=== PATIENT | female | born 1940 | race Caucasian/White ===

== ENCOUNTER 2018-07-12 16:22 | Inpatient (IN) | payer MEDICARE, MEDICAID ==
[2018-07-12 16:41] VITALS: BMI 33.1
[2018-07-12] MEDS ORDERED: Ondansetron ODT 4 MG TAB PO PRN (16:51)
[2018-07-12] MEDS ORDERED: Acetaminophen 325 MG TAB PO PRN (16:57)
[2018-07-12] MEDS: Ferrous Sulfate 325 MG TAB PO SCH (20:57)
[2018-07-12] MEDS: Pravastatin Sodium 20 MG TAB PO SCH (20:57)
[2018-07-12] MEDS: Sulfameth/Trimethoprim DS 800-160mg TAB PO SCH (20:57)
[2018-07-12] MEDS ORDERED: Prevnar 13-Val Conj/PF 0.5 ML SYRINGE IM ONE (21:00)
[2018-07-13 05:24] LABS: #Basophils 0.1 thou/uL (0.0-0.2); #Eosinphils 0.1 thou/uL (0.0-0.7); #Lymphocytes 1.5 thou/uL (1.20-3.40); #Monocytes 0.6 thou/uL (0.11-0.59); #Neutrophils 4.7 thou/uL (1.40-6.50); %Basophils 0.7 % (0.0-1.0); %Eosinophils 1.2 % (0.0-10.0); %Lymphocytes 22.2 % (21.0-51.0); %Neutrophils 67.9 % (42.0-75.0); Hemoglobin 9.6 g/dL (12.0-16.0); Mean Corpuscular HGB CONC 31.3 g/dL (32.0-36.0); Mean Corpuscular Volume 92.7 fL (78.0-98.0); Mean Platelet Volume 5.9 fL (7.4-10.4); Platelet Count 276 thou/uL (130-400); RBC Distribution Width 13.4 % (11.5-14.5); Red Blood Cell (RBC) Count 3.31 mill/uL (4.20-5.40); White Blood Cell (WBC) Count 6.9 thou/uL (4.8-10.8)
[2018-07-13 05:42] LABS: ALT (SGPT) 12 U/L (8-55); AST (SGOT) 13 U/L (5-34); Alkaline Phosphatase 76 U/L (40-150); Anion Gap 12 mmol/L (10-20); BUN (Urea Nitrogen) 6 mg/dL (9.8-20.1); Bilirubin, Total 0.4 mg/dL (0.2-1.2); Calc. Creatinine Clearance 135 mL/min (70-130); Calcium 8.4 mg/dL (7.8-10.44); Carbon Dioxide 26 mmol/L (23-31); Chloride 109 mmol/L (98-107); Estimated GFR-MDRD Greater than 90; Glucose 97 mg/dL (83-110); Potassium 3.8 mmol/L (3.5-5.1); Sodium 143 mmol/L (136-145)
--- NOTE | 2018-07-13 07:29 | PRG ---
DATE OF SERVICE: 07/13/2018 SUBJECTIVE: The patient feels well, sleeping, but awakens easily, answers questions in monosyllables, but appropriately, and denies shortness of breath, chest pain. She states she is hungry and has no chills or sweats. OBJECTIVE: VITAL SIGNS: Blood pressure is not available yet this morning. LUNGS: Clear. CARDIAC EXAMINATION: Regular rhythm. ABDOMEN: Obese and nontender. SKIN/EXTREMITIES: No edema. NEUROLOGICAL: Right hemiplegia. ASSESSMENT: 1. Resolving sepsis secondary to infected right ureterolithiasis with stent in place, on oral Bactrim until lithotripsy can be done by Dr. Fraga. 2. 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 3. Severe deconditioning. 4. Hypomagnesia and hypokalemia, persistent. PLAN: 1. Magnesium oxide 400 twice daily. 2. K-Dur 20 mEq daily. 3. Basic metabolic profile and magnesium level in 2 days. 4. Continue oral Bactrim DS twice daily. 5. Consult PT/OT when available. 6. Discuss lithotripsy with Dr. Fraga, when the patient is ready for discharge. Job ID: [id number]
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
[2018-07-13] MEDS: Enoxaparin Sodium 40 MG/0.4 ML SYRINGE SC SCH (08:24)
[2018-07-13] MEDS: Polyethylene Glycol 3350 17 GM Packet PO SCH (08:24)
[2018-07-13] MEDS: Sulfameth/Trimethoprim DS 800-160mg TAB PO SCH ×2 (08:24→20:19)
[2018-07-13] MEDS: Fluconazole 100 MG TAB PO SCH (08:25)
[2018-07-13] MEDS: Potassium Chloride 20 MEQ TAB PO SCH (08:25)
[2018-07-13] MEDS: Magnesium Oxide 400 MG TAB PO SCH ×2 (08:25→20:20)
[2018-07-13 16:50] LABS: Bilirubin Negative (Negative); Blood, Urine Trace (Negative); Clarity Clear (Clear); Glucose, Urine (Dipstick) Negative (Negative); Leukocyte Negative (Negative); Nitrite Negative (Negative); Protein, Urine (Dipstick) Negative (Neg-Trace); Specific Gravity, Urine 1.015 (1.005-1.030); Urobilinogen 0.2 mg/dL (0.2-1.0)
[2018-07-13 18:39] LABS: RBC/HPF 0-3 HPF (0-3); Squamous Epithelial 0-3 HPF (0-3); WBC/HPF 0-3 HPF (0-3)
[2018-07-13] MEDS: Ferrous Sulfate 325 MG TAB PO SCH (20:19)
[2018-07-13] MEDS: Pravastatin Sodium 20 MG TAB PO SCH (20:20)
[2018-07-14] MEDS: Fluconazole 100 MG TAB PO SCH (08:18)
[2018-07-14] MEDS: Enoxaparin Sodium 40 MG/0.4 ML SYRINGE SC SCH (08:18)
[2018-07-14] MEDS: Polyethylene Glycol 3350 17 GM Packet PO SCH (08:18)
[2018-07-14] MEDS: Potassium Chloride 20 MEQ TAB PO SCH (08:20)
[2018-07-14] MEDS: Sulfameth/Trimethoprim DS 800-160mg TAB PO SCH ×2 (08:20→21:05)
[2018-07-14] MEDS: Magnesium Oxide 400 MG TAB PO SCH ×2 (08:21→21:05)
--- NOTE | 2018-07-14 20:56 | PRG ---
DATE OF SERVICE: 07/14/2018 SUBJECTIVE: The patient feels well, lying in the bed, awake and alert, in no distress. Does agree to working with therapy tomorrow, but has not been out of the bed. OBJECTIVE: VITAL SIGNS: Temperature is 97.9, pulse 81, respirations 20, O2 sats 92% on room air, and blood pressure is 122/58. LUNGS: Clear. CARDIAC: Showed regular rhythm. ABDOMEN: Soft and nontender. SKIN/EXTREMITIES: Display no edema, clubbing, or cyanosis. NEUROLOGIC: Dense right hemiplegia. ASSESSMENT: 1. Traumatic brain injury with right hemiplegia. 2. Recurrent urinary tract infections, status post stent and antibiotics for infected right ureterolithiasis. 3. Severe deconditioning. 4. Hypokalemia, hypomagnesemia, on supplementation with labs to be done tomorrow. PLAN: 1. Discussed with PT and family about therapy possibility. 2. Check magnesium, basic metabolic profile in the a.m. 3. Continue Bactrim DS twice daily. 4. Discussed with Dr. Fraga lithotripsy when discharge is planned. Job ID: [id number]
[2018-07-14] MEDS: Ferrous Sulfate 325 MG TAB PO SCH (21:05)
[2018-07-14] MEDS: Pravastatin Sodium 20 MG TAB PO SCH (21:05)
[2018-07-15 05:44] LABS: Anion Gap 14 mmol/L (10-20); BUN (Urea Nitrogen) 8 mg/dL (9.8-20.1); Calc. Creatinine Clearance 107 mL/min (70-130); Calcium 8.8 mg/dL (7.8-10.44); Carbon Dioxide 21 mmol/L (23-31); Chloride 106 mmol/L (98-107); Estimated GFR-MDRD 86; Glucose 99 mg/dL (83-110); Magnesium 2.1 mg/dL (1.6-2.6); Potassium 4.2 mmol/L (3.5-5.1); Sodium 137 mmol/L (136-145)
[2018-07-15] MEDS: Magnesium Oxide 400 MG TAB PO SCH ×2 (08:52→20:57)
[2018-07-15] MEDS: Potassium Chloride 20 MEQ TAB PO SCH (08:52)
[2018-07-15] MEDS: Polyethylene Glycol 3350 17 GM Packet PO SCH (08:54)
[2018-07-15] MEDS: Fluconazole 100 MG TAB PO SCH (08:54)
[2018-07-15] MEDS: Sulfameth/Trimethoprim DS 800-160mg TAB PO SCH ×2 (08:54→20:57)
[2018-07-15] MEDS: Enoxaparin Sodium 40 MG/0.4 ML SYRINGE SC SCH (08:56)
[2018-07-15] MEDS: Pravastatin Sodium 20 MG TAB PO SCH (20:57)
[2018-07-15] MEDS: Ferrous Sulfate 325 MG TAB PO SCH (20:57)
[2018-07-16] MEDS: Sulfameth/Trimethoprim DS 800-160mg TAB PO SCH ×2 (08:32→19:53)
[2018-07-16] MEDS: Fluconazole 100 MG TAB PO SCH (08:32)
[2018-07-16] MEDS: Enoxaparin Sodium 40 MG/0.4 ML SYRINGE SC SCH (08:32)
[2018-07-16] MEDS: Magnesium Oxide 400 MG TAB PO SCH ×2 (08:33→19:54)
[2018-07-16] MEDS: Potassium Chloride 20 MEQ TAB PO SCH (08:33)
[2018-07-16] MEDS: Polyethylene Glycol 3350 17 GM Packet PO SCH (08:34)
[2018-07-16] MEDS: Ferrous Sulfate 325 MG TAB PO SCH (19:54)
[2018-07-16] MEDS: Pravastatin Sodium 20 MG TAB PO SCH (19:54)
[2018-07-17] MEDS: Polyethylene Glycol 3350 17 GM Packet PO SCH (08:25)
[2018-07-17] MEDS: Fluconazole 100 MG TAB PO SCH (08:25)
[2018-07-17] MEDS: Enoxaparin Sodium 40 MG/0.4 ML SYRINGE SC SCH (08:25)
[2018-07-17] MEDS: Sulfameth/Trimethoprim DS 800-160mg TAB PO SCH ×2 (08:26→19:40)
[2018-07-17] MEDS: Potassium Chloride 20 MEQ TAB PO SCH (08:26)
[2018-07-17] MEDS: Magnesium Oxide 400 MG TAB PO SCH ×2 (08:26→19:41)
[2018-07-17] MEDS: Ferrous Sulfate 325 MG TAB PO SCH (19:40)
[2018-07-17] MEDS: Pravastatin Sodium 20 MG TAB PO SCH (19:41)
[2018-07-18 07:17] VITALS: BP 128/62; TEMP 98.1
[2018-07-18] MEDS: Potassium Chloride 20 MEQ TAB PO SCH (08:12)
[2018-07-18] MEDS: Polyethylene Glycol 3350 17 GM Packet PO SCH (08:12)
[2018-07-18] MEDS: Magnesium Oxide 400 MG TAB PO SCH (08:12)
[2018-07-18] MEDS: Fluconazole 100 MG TAB PO SCH (08:12)
[2018-07-18] MEDS: Enoxaparin Sodium 40 MG/0.4 ML SYRINGE SC SCH (08:12)
[2018-07-18] MEDS: Sulfameth/Trimethoprim DS 800-160mg TAB PO SCH (08:12)
[2018-07-18] MEDS ORDERED: Triple Antibiotic Oint 1 GM Packet TOP SCH (09:00)
[2018-07-18] MEDS ORDERED: Doxycycline 100 MG CAP PO SCH (09:00)
[2018-07-18] MEDS ORDERED: Magnesium Citrate 300 ML BOT PO SCH (11:00)
== END 2018-07-18 12:33 | disposition home health service (06) | DRG 871 ==
LOC: NAV ACUTE 16:22
PROVIDERS: ADMIT Internal Medicine; ATTEND Internal Medicine
DX: A41.9 Sepsis, unspecified organism (principal); R65.21 Severe sepsis with septic shock; G81.91 Hemiplegia, unspecified affecting right dominant side; N39.0 Urinary tract infection, site not specified; R53.81 Other malaise; E83.42 Hypomagnesemia; E87.6 Hypokalemia; I10 Essential (primary) hypertension; E78.5 Hyperlipidemia, unspecified; J44.9 Chronic obstructive pulmonary disease, unspecified; K21.9 Gastro-esophageal reflux disease without esophagitis; I25.2 Old myocardial infarction; Z90.710 Acquired absence of both cervix and uterus; Z87.820 Personal history of traumatic brain injury; Z93.0 Tracheostomy status
CPT/HCPCS: 80048; 80053; 81001; 83735; 85025; 87070; 87205; J1650

== ENCOUNTER 2019-01-29 14:11 | Outpatient (CLI) | payer MEDICARE, OTHER ==
[2019-01-30 12:04] LABS: Bilirubin Small (Negative); Blood, Urine Small (Negative); Glucose, Urine (Dipstick) Negative (Negative); Leukocyte Large (Negative); Nitrite Negative (Negative); Protein, Urine (Dipstick) > or equal to 300 mg/dL (Neg-Trace)
[2019-01-30 12:10] LABS: Clarity Turbid (Clear)
[2019-01-30 12:11] LABS: Bacteria/HPF 4+ HPF (None Seen); RBC/HPF 0-3 HPF (0-3); Squamous Epithelial 0-3 HPF (0-3); Triple Phosphate Crystal 1+ HPF (None Seen); WBC/HPF 0-3 HPF (0-3)
== END 2019-01-29 14:12 | disposition home or self-care (01) ==
LOC: NAV LABSP 14:11
PROVIDERS: ATTEND Urology
DX: Z87.440 Personal history of urinary (tract) infections (principal)
CPT/HCPCS: 81001; 87077; 87086; 87186

== ENCOUNTER 2020-02-23 17:44 | Inpatient (IN) | payer MEDICARE, MEDICAID ==
[2020-02-23 18:03] VITALS: BMI 33.3
[2020-02-23] MEDS: Lactinex Tablet PO SCH (21:01)
[2020-02-23] MEDS: Cholecalciferol 1,000 UNITS (25 MCG) TAB PO SCH (21:01)
[2020-02-23] MEDS: Ferrous Sulfate 325 MG TAB PO SCH (21:02)
[2020-02-23] MEDS: Sulfameth/Trimethoprim DS 800-160mg TAB PO SCH (21:02)
[2020-02-23] MEDS: Pantoprazole 40 MG GRANULES PACKET PO SCH (21:02)
[2020-02-23] MEDS: Simvastatin 10 MG TAB PO SCH (21:02)
[2020-02-23] MEDS: Meropenem 1 GM in Sodium Chloride 0.9% 100 ML IVPB SCH (23:53)
[2020-02-24] MEDS ORDERED: Meropenem 1 GM VIAL IVPB SCH
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
[2020-02-24 05:43] LABS: #Basophils 0.1 thou/uL (0.0-0.2); #Eosinphils 0.2 thou/uL (0.0-0.7); #Lymphocytes 1.7 thou/uL (1.20-3.40); #Monocytes 0.8 thou/uL (0.11-0.59); #Neutrophils 3.8 thou/uL (1.40-6.50); %Basophils 1.2 % (0.0-1.0); %Eosinophils 3.1 % (0.0-10.0); %Lymphocytes 26.2 % (21.0-51.0); %Monocytes 11.7 % (0.0-10.0); %Neutrophils 57.9 % (42.0-75.0); Mean Corpuscular HGB CONC 32.3 g/dL (32.0-36.0); Mean Corpuscular Hemoglobin 29.7 pg (27.0-31.0); Mean Corpuscular Volume 92.1 fL (78.0-98.0); Mean Platelet Volume 6.4 fL (7.4-10.4); Platelet Count 220 thou/uL (130-400); RBC Distribution Width 14.1 % (11.5-14.5); Red Blood Cell (RBC) Count 4.05 mill/uL (4.20-5.40); White Blood Cell (WBC) Count 6.6 thou/uL (4.8-10.8)
[2020-02-24 05:59] LABS: ALT (SGPT) 12 U/L (8-55); AST (SGOT) 16 U/L (5-34); Albumin 2.8 g/dL (3.4-4.8); Alkaline Phosphatase 81 U/L (40-110); Anion Gap 10 mmol/L (10-20); BUN (Urea Nitrogen) 8 mg/dL (9.8-20.1); Bilirubin, Total 0.4 mg/dL (0.2-1.2); Calc. Creatinine Clearance 101 mL/min (70-130); Calcium 8.1 mg/dL (7.8-10.44); Carbon Dioxide 27 mmol/L (23-31); Chloride 107 mmol/L (98-107); Globulin 3.3 g/dL (2.4-3.5); Glucose 90 mg/dL (83-110); Potassium 4.1 mmol/L (3.5-5.1); Protein, Total 6.1 g/dL (6.0-8.3); Sodium 140 mmol/L (136-145)
[2020-02-24] MEDS ORDERED: Meropenem 1 GM VIAL ONE (08:52)
[2020-02-24] MEDS: Meropenem 1 GM in Sodium Chloride 0.9% 100 ML IVPB SCH ×3 (08:54→23:05)
[2020-02-24] MEDS ORDERED: FLU VACC QS2020-21(65YR UP)/PF 240 MCG/0.7 ML SYRINGE IM ONE (09:00)
[2020-02-24] MEDS: Enoxaparin Sodium 40 MG/0.4 ML SYRINGE SC SCH (09:00)
[2020-02-24] MEDS: Sulfameth/Trimethoprim DS 800-160mg TAB PO SCH ×2 (09:00→21:17)
[2020-02-24] MEDS: Cholecalciferol 1,000 UNITS (25 MCG) TAB PO SCH (21:16)
[2020-02-24] MEDS: Simvastatin 10 MG TAB PO SCH (21:17)
[2020-02-24] MEDS: Ferrous Sulfate 325 MG TAB PO SCH (21:17)
[2020-02-24] MEDS: Lactinex Tablet PO SCH (21:17)
[2020-02-24] MEDS: Pantoprazole 40 MG GRANULES PACKET PO SCH (21:17)
--- NOTE | 2020-02-25 06:40 | PRG ---
DATE OF SERVICE: 02/24/2020 SUBJECTIVE: The patient is an unfortunate, 79-year-old white female, status post traumatic brain injury years ago with right hemiparesis, who is bedridden, who also has recurrent bilateral nephrolithiasis with recurrent urinary tract infections and sepsis and has had an episode of E coli bacteremia and bilateral hydronephrosis requiring ureteral stents, being placed by Dr. Fraga. She has defervesced on IV meropenem and is to finish her IV meropenem on February 25 and is doing well in the skilled unit at this time. The patient is alert, but confused and in no distress. She is eating well with no complaints of pain or nausea. OBJECTIVE: VITAL SIGNS: Temperature 97.2, pulse 70, respirations 18, O2 saturations 95% on room air, blood pressure is 114/53. LUNGS: Clear. CARDIAC: Shows regular rhythm. ABDOMEN: Soft and nontender. There are no decubitus. LABORATORY DATA: White count 6600, hematocrit 37, hemoglobin 12. Sodium 140, potassium 4.1, chloride 107, bicarb 27, BUN 8, creatinine 0.69, albumin 2.8. ASSESSMENT: Resolving E coli bacteremia secondary to bilateral nephrolithiasis, who is status post bilateral ureteral stents and is finishing her course of IV meropenem. PLAN: 1. Continue IV meropenem until final date of February 25. 2. Discuss follow up with Dr. Fraga after discharge. 3. Continue also oral Bactrim until March 02. Job ID: [id number]
[2020-02-25] MEDS: Sulfameth/Trimethoprim DS 800-160mg TAB PO SCH ×2 (08:56→20:15)
[2020-02-25] MEDS: Enoxaparin Sodium 40 MG/0.4 ML SYRINGE SC SCH (08:56)
[2020-02-25] MEDS: Meropenem 1 GM in Sodium Chloride 0.9% 100 ML IVPB SCH ×3 (08:57→23:17)
[2020-02-25] MEDS: Cholecalciferol 1,000 UNITS (25 MCG) TAB PO SCH (20:14)
[2020-02-25] MEDS: Ferrous Sulfate 325 MG TAB PO SCH (20:15)
[2020-02-25] MEDS: Lactinex Tablet PO SCH (20:15)
[2020-02-25] MEDS: Simvastatin 10 MG TAB PO SCH (20:15)
[2020-02-25] MEDS: Pantoprazole 40 MG GRANULES PACKET PO SCH (20:15)
--- NOTE | 2020-02-26 06:05 | PRG ---
DATE OF SERVICE: 02/25/2020 SUBJECTIVE: Patient is awake and alert, confused, but at baseline mental status, cheerful, and in no distress. Daughter is in the room and discussed that her antibiotics will be finished tomorrow or tonight and that she can be discharged home tomorrow and she is agreeable. OBJECTIVE: VITAL SIGNS: Temperature is 97.5, pulse 74, respirations 18, O2 sats 94% on room air, blood pressure is 122/65. LUNGS: Clear. CARDIAC: Regular rhythm. ABDOMEN: Soft and nontender. ASSESSMENT: 1. Resolving Escherichia coli bacteremia, to finish IV meropenem 10-day course tonight. 2. Recurrent nephrolithiasis with bilateral stents in place. To follow up with Dr. Fraga as an outpatient. 3. Stable traumatic brain injury with confusion and right hemiplegia. PLAN: Finish antibiotics today. Discharge tomorrow. Follow up with Dr. Fraga at his discretion. Job ID: [id number]
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
[2020-02-26] MEDS: Enoxaparin Sodium 40 MG/0.4 ML SYRINGE SC SCH (09:06)
[2020-02-26] MEDS: Sulfameth/Trimethoprim DS 800-160mg TAB PO SCH (09:06)
[2020-02-26] MEDS: Meropenem 1 GM in Sodium Chloride 0.9% 100 ML IVPB SCH ×2 (09:09→15:43)
[2020-02-26 09:24] VITALS: BP 130/64; TEMP 97.2
[2020-02-26 17:17] LABS: Bilirubin Negative (Negative); Blood, Urine Moderate (Negative); Glucose, Urine (Dipstick) Negative (Negative); Ketone, Urine Negative (Negative); Leukocyte Large (Negative); Nitrite Negative (Negative); Protein, Urine (Dipstick) Trace mg/dL (Neg-Trace); Urobilinogen 0.2 mg/dL (Less than 2); pH, Urine 7.5 (5.0-9.0)
[2020-02-26 17:38] LABS: Clarity Hazy (Clear)
[2020-02-26 17:51] LABS: Bacteria/HPF Rare-Few HPF (None Seen); RBC/HPF 0-3 HPF (0-3); Transitional Epithelial 0-3 HPF (None Seen); WBC/HPF 21-50 HPF (0-3)
[2020-02-26 17:52] LABS: Urine Culture Reflex No No
--- NOTE | 2020-03-03 05:24 | PQF ---
CLINICAL DOCUMENTATION CLARIFICATION FORM: Dear : David Simon Date / Time: 03/03/2020 Please exercise your independent, professional judgment in responding to the clarification form. Clinical indicators are provided on the bottom of this form for your review Please check appropriate box(es): [ x ] Sepsis due to nephrolithiasis [ ] Sepsis due to other (please specify if any [ ] Bacteremia [ ] Other diagnosis [ ] Unable to determine In addition, please specify: Present on Admission (POA): [ x ] Yes [ ] No [ ] Unable to determine To be completed by CDI/Coding staff for physician review: Present Clinical Indicators - Signs / Symptoms / Labs Results and Location in Medical Record [ x ] Chief complaint: E.coli bacteremia secondary to bilateral obstructed ureter with nephrolithiasis and hydronephrosis H and P [ x ] Found in the ED to have obstructed kidney and hydronephrosis and quickly became septic with tachycardia and fever and hypotension requiring pressor with Levophed. H and P [ x ] Resolving E.coli bacteremia secondary to bilateral nephrolithiasis, status post bilateral ureteral stents and finishing her course of IV meropenem Progress 02/23 by David Moseley [ x ] Patient with main problem of recurrent UTI and urosepsis secondary to recurrent nephrolithiasis Discharge summary Present Risk Factors Results and Location in Medical Record [ x ] Recurrent urinary tract infection, nephrolithiasis and ureterolithiasis, status post stents, E.coli bacteremia Discharge summary Present Treatments Results and Location in Medical Record [ x ] IV Meropenem 1130-02/26 Medications [ x ] Daily CBCs Laboratory [ x ] IV fluids Medications CDS/Doctor Of Pharmacy Signature: [id number] Phone #: Date/Time: 03/03/2020 This is a permanent part of the Medical Record [facility]
== END 2020-02-26 19:10 | disposition home health service (06) | DRG 872 ==
LOC: NAV ACUTE 17:44
PROVIDERS: ADMIT Internal Medicine; ATTEND Internal Medicine
DX: A41.9 Sepsis, unspecified organism (principal); N13.6 Pyonephrosis; G81.91 Hemiplegia, unspecified affecting right dominant side; I10 Essential (primary) hypertension; E78.5 Hyperlipidemia, unspecified; K59.09 Other constipation; J44.9 Chronic obstructive pulmonary disease, unspecified; I25.2 Old myocardial infarction; Z90.710 Acquired absence of both cervix and uterus; Z87.820 Personal history of traumatic brain injury; Z74.01 Bed confinement status
CPT/HCPCS: 80053; 81001; 85025; 87086; 90471; 90662; 90732; G0008; G0009; J1650; J2185; J3490

== ENCOUNTER 2020-03-26 17:30 | Inpatient (IN) | payer MEDICARE, MEDICAID ==
[2020-03-26] MEDS ORDERED: Acetaminophen 325 MG TAB PO PRN (18:09)
[2020-03-26] MEDS ORDERED: Lactinex Tablet PO SCH (21:00)
[2020-03-26] MEDS ORDERED: Pantoprazole 40 MG GRANULES PACKET PO SCH (21:00)
[2020-03-26] MEDS ORDERED: Metoprolol Tartrate 25 MG TAB PO SCH (21:00)
[2020-03-26] MEDS ORDERED: Ferrous Sulfate 325 MG TAB PO SCH (21:00)
[2020-03-26] MEDS ORDERED: Cholecalciferol 1,000 UNITS (25 MCG) TAB PO SCH (21:00)
[2020-03-26] MEDS: Simvastatin 10 MG TAB PO SCH (21:37)
[2020-03-26] MEDS: Meropenem 1 GM in Sodium Chloride 0.9% 100 ML IVPB SCH (21:39)
[2020-03-27] MEDS: Meropenem 1 GM in Sodium Chloride 0.9% 100 ML IVPB SCH ×3 (06:22→21:17)
[2020-03-27] MEDS ORDERED: Acetaminophen 325 MG TAB PO PRN (07:21)
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
[2020-03-27 08:32] LABS: Band 2 % (5-11); Hemoglobin 10.7 g/dL (12.0-16.0); Lymphocytes 16 % (21-51); MDiff Complete? YES; Mean Corpuscular HGB CONC 33.2 g/dL (32.0-36.0); Mean Corpuscular Hemoglobin 30.4 pg (27.0-31.0); Mean Corpuscular Volume 91.4 fL (78.0-98.0); Monocytes 6 % (0-10); Neutrophil 75 % (42-75); Ovalocytes SLIGHT = 2-5 cells (100X) (0-1/hpf); Platelet Count 180 thou/uL (130-400); Platelet Morphology Comment Appears Adequate; RBC Distribution Width 15.1 % (11.5-14.5); Reactive Lymphocytes 1 % (0-10); Red Blood Cell (RBC) Count 3.53 mill/uL (4.20-5.40); Tear Drops SLIGHT = 2-5 cells (100X) (0-1/hpf); White Blood Cell (WBC) Count 7.7 thou/uL (4.8-10.8)
[2020-03-27] MEDS: Enoxaparin Sodium 40 MG/0.4 ML SYRINGE SC SCH (08:36)
[2020-03-27] MEDS: Metoprolol Tartrate 25 MG TAB PO SCH ×2 (08:37→21:13)
[2020-03-27 08:41] LABS: ALT (SGPT) 9 U/L (8-55); AST (SGOT) 10 U/L (5-34); Albumin 2.6 g/dL (3.4-4.8); Alkaline Phosphatase 93 U/L (40-110); Anion Gap 9 mmol/L (10-20); BUN (Urea Nitrogen) 10 mg/dL (9.8-20.1); Bilirubin, Total 0.3 mg/dL (0.2-1.2); Calc. Creatinine Clearance 127 mL/min (70-130); Calcium 7.9 mg/dL (7.8-10.44); Carbon Dioxide 31 mmol/L (23-31); Chloride 105 mmol/L (98-107); Globulin 3.5 g/dL (2.4-3.5); Glucose 102 mg/dL (83-110); Potassium 3.2 mmol/L (3.5-5.1); Protein, Total 6.1 g/dL (6.0-8.3); Sodium 142 mmol/L (136-145)
[2020-03-27] MEDS ORDERED: Enoxaparin Sodium 40 MG/0.4 ML SYRINGE SC SCH (09:00)
[2020-03-27] MEDS ORDERED: MEROPENEM 1 GM/50 ML IVPB SCH (14:00)
[2020-03-27] MEDS ORDERED: Sodium Chloride 0.9% 10 ML ONE (15:38)
[2020-03-27] MEDS ORDERED: Pravastatin Sodium 20 MG TAB PO SCH (21:00)
[2020-03-27] MEDS ORDERED: Sodium Chloride 0.9% 20 ML ONE (21:06)
[2020-03-27] MEDS: Lactinex Tablet PO SCH (21:11)
[2020-03-27] MEDS: Cholecalciferol 1,000 UNITS (25 MCG) TAB PO SCH (21:12)
[2020-03-27] MEDS: Simvastatin 10 MG TAB PO SCH (21:13)
[2020-03-27] MEDS: Ferrous Sulfate 325 MG TAB PO SCH (21:14)
[2020-03-27] MEDS ORDERED: Pantoprazole 40 MG GRANULES PACKET ONE (21:20)
[2020-03-27] MEDS: Pantoprazole 40 MG GRANULES PACKET PO SCH (21:23)
[2020-03-28] MEDS ORDERED: Sodium Chloride 0.9% 20 ML ONE (05:52)
[2020-03-28] MEDS: Meropenem 1 GM in Sodium Chloride 0.9% 100 ML IVPB SCH ×3 (06:02→22:16)
[2020-03-28] MEDS: Metoprolol Tartrate 25 MG TAB PO SCH ×2 (08:26→21:37)
[2020-03-28] MEDS: Enoxaparin Sodium 40 MG/0.4 ML SYRINGE SC SCH (08:26)
[2020-03-28] MEDS ORDERED: Sodium Chloride 0.9% 40 ML ONE (20:50)
[2020-03-28] MEDS: Lactinex Tablet PO SCH (21:28)
[2020-03-28] MEDS: Cholecalciferol 1,000 UNITS (25 MCG) TAB PO SCH (21:29)
[2020-03-28] MEDS: Pantoprazole 40 MG GRANULES PACKET PO SCH (21:29)
[2020-03-28] MEDS: Simvastatin 10 MG TAB PO SCH (21:29)
[2020-03-28] MEDS: Ferrous Sulfate 325 MG TAB PO SCH (21:31)
[2020-03-29] MEDS ORDERED: Sodium Chloride 0.9% 20 ML ONE (06:23)
[2020-03-29] MEDS: Meropenem 1 GM in Sodium Chloride 0.9% 100 ML IVPB SCH ×3 (06:43→21:53)
--- NOTE | 2020-03-29 06:49 | PRG ---
DATE OF SERVICE: 03/27/2020 SUBJECTIVE: The patient lying in bed, resting well. No complaints. Has been eating well, sleeping well with no respiratory distress. OBJECTIVE: VITAL SIGNS: Show temperature is 98.3, pulse 67, respirations 20, O2 saturations 95% on room air, blood pressure is 124/60. LUNGS: Clear. CARDIAC: Shows regular rhythm. ABDOMEN: Obese, but nontender. SKIN/EXTREMITIES: Show trace edema, clubbing. No decubitus. NEUROLOGIC: Shows right hemiplegia. LABORATORY DATA: White count of 7700, hematocrit 32, hemoglobin 10. Sodium 140, potassium low at 3.2, chloride 105, bicarb 31, BUN 10, creatinine 0.53, glucose 102, calcium 7.9, total bilirubin 0.3, AST 10, ALT 9, albumin down to 2.6. ASSESSMENT: 1. infected renal calculi, status post lithotripsy, stenting, with subsequent Proteus bacteremia, septic shock, now resolving on IV meropenem for a full 10-day course until April 08. 2. Stable traumatic brain injury, right hemiplegia, expressive aphasia, and cognitive deficits. 3. Chronic obstructive pulmonary disease history, asymptomatic. 4. Hypertension, controlled to goal. 5. Chronic constipation, doing well. PLAN: 1. Continue IV meropenem for 10 days. 2. Continue stress ulcer and DVT prophylaxis. 3. Continue metoprolol 12.5 twice daily for recent tachycardia. Monitor for bradycardia and hypotension and bronchospasms. 4. Anxiety and depression. Continue sertraline. Job ID: [id number]
--- NOTE | 2020-03-29 08:08 | PRG ---
DATE OF SERVICE: 03/28/2020 SUBJECTIVE: The patient is lying in bed, feels well, eating her supper. No cough, shortness of breath, nausea, or vomiting. Nurses have reported no concerns. The patient is tolerating her IV meropenem very well. OBJECTIVE: VITAL SIGNS: Showed temperature 98.4, pulse 70, respirations 18, O2 sats 96% on room air, blood pressure is 116/60. LUNGS: Clear. CARDIAC EXAMINATION: Regular rhythm. ABDOMEN: Soft and nontender. ASSESSMENT: 1. Resolving resistant Proteus bacteremia and septic shock, on IV meropenem on full 10-day course until March. 2. 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 3. Chronic obstructive pulmonary disease, historically asymptomatic. 4. Hypertension, controlled to goal. PLAN: 1. Continue IV meropenem for a full 10-day course, finish on April 08. 2. Continue stress ulcer and DVT prophylaxis. 3. Monitor vital signs closely, particularly pulse, and continue metoprolol 12.5 twice daily for a recent episode of supraventricular tachycardia. 4. Continue sertraline. Job ID: [id number]
[2020-03-29] MEDS: Enoxaparin Sodium 40 MG/0.4 ML SYRINGE SC SCH (08:36)
[2020-03-29] MEDS: Metoprolol Tartrate 25 MG TAB PO SCH ×2 (08:36→21:52)
[2020-03-29] MEDS: Potassium Chloride 20 MEQ TAB PO SCH (08:36)
[2020-03-29] MEDS: Lactinex Tablet PO SCH (21:52)
[2020-03-29] MEDS: Simvastatin 10 MG TAB PO SCH (21:53)
[2020-03-29] MEDS: Cholecalciferol 1,000 UNITS (25 MCG) TAB PO SCH (21:53)
[2020-03-29] MEDS: Pantoprazole 40 MG GRANULES PACKET PO SCH (21:53)
[2020-03-29] MEDS: Ferrous Sulfate 325 MG TAB PO SCH (21:53)
[2020-03-30] MEDS: Meropenem 1 GM in Sodium Chloride 0.9% 100 ML IVPB SCH ×3 (06:51→21:35)
[2020-03-30] MEDS: Potassium Chloride 20 MEQ TAB PO SCH (10:13)
[2020-03-30] MEDS: Metoprolol Tartrate 25 MG TAB PO SCH ×2 (10:14→21:36)
[2020-03-30] MEDS: Enoxaparin Sodium 40 MG/0.4 ML SYRINGE SC SCH (10:16)
[2020-03-30] MEDS ORDERED: Sodium Chloride 0.9% 20 ML ONE (15:14)
--- NOTE | 2020-03-30 19:35 | PRG ---
DATE OF SERVICE: 03/29/2020 SUBJECTIVE: The patient lying in bed, eating supper. No complaints. Tolerating antibiotics well. OBJECTIVE: VITAL SIGNS: Temperature is 98.8, pulse 69, respirations 20, O2 sats 93% on room air, blood pressure 130/63. LUNGS: Clear. CARDIAC: Regular rhythm. ABDOMEN: Soft, nontender. ASSESSMENT: 1. Resolving resistant Proteus bacteremia and septic shock, on IV meropenem until April 08. 2. 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 3. Hypertension, controlled to goal. 4. Chronic obstructive pulmonary disease by history. No symptoms. PLAN: 1. Continue IV meropenem full 10-day course, to finish on April 08. 2. Continue stress ulcer and DVT prophylaxis. 3. Continue to monitor vital signs on metoprolol because of recent episode of supraventricular tachycardia. 4. Continue sertraline. Job ID: [id number]
[2020-03-30] MEDS: Lactinex Tablet PO SCH (21:35)
[2020-03-30] MEDS: Cholecalciferol 1,000 UNITS (25 MCG) TAB PO SCH (21:36)
[2020-03-30] MEDS: Simvastatin 10 MG TAB PO SCH (21:36)
[2020-03-30] MEDS: Ferrous Sulfate 325 MG TAB PO SCH (21:36)
[2020-03-30] MEDS: Pantoprazole 40 MG GRANULES PACKET PO SCH (21:37)
[2020-03-31] MEDS: Meropenem 1 GM in Sodium Chloride 0.9% 100 ML IVPB SCH ×3 (06:11→21:19)
[2020-03-31] MEDS: Metoprolol Tartrate 25 MG TAB PO SCH ×2 (08:41→21:18)
[2020-03-31] MEDS: Enoxaparin Sodium 40 MG/0.4 ML SYRINGE SC SCH (08:41)
[2020-03-31] MEDS: Potassium Chloride 20 MEQ TAB PO SCH (08:41)
[2020-03-31] MEDS ORDERED: Sodium Chloride 0.9% 10 ML ONE (13:54)
--- NOTE | 2020-03-31 20:02 | PRG ---
DATE OF SERVICE: 03/30/2020 SUBJECTIVE: Ms. Webber is resting in bed. Her granddaughter is in the room. She denies any questions or concerns. She is tolerating her antibiotics. OBJECTIVE: VITAL SIGNS: She is afebrile. Heart rate is 68, respirations 18, oxygen saturation 96% on room air, blood pressure 117/58. CARDIOVASCULAR: S1, S2 plus. RESPIRATORY: Normal vesicular breath sounds. ABDOMEN: Soft, nontender. Bowel sounds in all quadrants. EXTREMITIES: Without cyanosis, clubbing. CENTRAL NERVOUS SYSTEM: Generalized weakness. IMPRESSION: 1. Proteus bacteremia. 2. History of traumatic brain injury with right hemiplegia. 3. Hypertension. 4. Deconditioning. 5. Dyslipidemia. 6. Depression and anxiety. PLAN: 1. Continue current medications including antibiotics. 2. Nutritional support. 3. Weekly CBC, CMP, CRP, and sedimentation rate. 4. DVT prophylaxis-patient is on Lovenox. 5. Decubitus precautions. 6. Stress ulcer prophylaxis. 7. Physical therapy discussed with the patient and granddaughter in detail. All questions answered. Job ID: [id number]
[2020-03-31] MEDS ORDERED: Sodium Chloride 0.9% 20 ML ONE (21:16)
[2020-03-31] MEDS: Cholecalciferol 1,000 UNITS (25 MCG) TAB PO SCH (21:17)
[2020-03-31] MEDS: Lactinex Tablet PO SCH (21:17)
[2020-03-31] MEDS: Simvastatin 10 MG TAB PO SCH (21:18)
[2020-03-31] MEDS: Ferrous Sulfate 325 MG TAB PO SCH (21:19)
[2020-03-31] MEDS: Pantoprazole 40 MG GRANULES PACKET PO SCH (21:19)
[2020-04-01] MEDS: Meropenem 1 GM in Sodium Chloride 0.9% 100 ML IVPB SCH ×3 (05:32→21:10)
[2020-04-01] MEDS: Enoxaparin Sodium 40 MG/0.4 ML SYRINGE SC SCH (08:37)
[2020-04-01] MEDS: Metoprolol Tartrate 25 MG TAB PO SCH ×2 (08:37→21:01)
[2020-04-01] MEDS: Potassium Chloride 20 MEQ TAB PO SCH (08:37)
[2020-04-01] MEDS ORDERED: Sodium Chloride 0.9% 10 ML ONE (13:23)
[2020-04-01] MEDS: Lactinex Tablet PO SCH (21:01)
[2020-04-01] MEDS: Ferrous Sulfate 325 MG TAB PO SCH (21:02)
[2020-04-01] MEDS: Simvastatin 10 MG TAB PO SCH (21:03)
[2020-04-01] MEDS: Cholecalciferol 1,000 UNITS (25 MCG) TAB PO SCH (21:03)
[2020-04-01] MEDS: Pantoprazole 40 MG GRANULES PACKET PO SCH (21:06)
[2020-04-02] MEDS: Meropenem 1 GM in Sodium Chloride 0.9% 100 ML IVPB SCH ×2 (05:16→15:10)
[2020-04-02] MEDS: Potassium Chloride 20 MEQ TAB PO SCH (08:13)
[2020-04-02] MEDS: Enoxaparin Sodium 40 MG/0.4 ML SYRINGE SC SCH (08:14)
[2020-04-02] MEDS: Metoprolol Tartrate 25 MG TAB PO SCH ×2 (08:14→15:10)
--- NOTE | 2020-04-02 11:01 | PRG ---
DATE OF SERVICE: 04/02/2020 SUBJECTIVE: The patient feels well, lying in bed with no complaints of shortness of breath. OBJECTIVE: LUNGS: Clear. CARDIAC: Show regular rhythm. ABDOMEN: Soft and nontender. SKIN/EXTREMITIES: Show no edema, clubbing, or cyanosis. VITAL SIGNS: Show to have temperature 97.2, pulse 73, respirations 20, O2 sats 96% on room air, blood pressure 100/57. ASSESSMENT: 1. Resolving Proteus bacteremia, on IV antibiotics until April 08. 2. Stable traumatic brain injury and right hemiplegia. 3. Stable hypertension. PLAN: 1. Continue IV meropenem until April 08. 2. Continue to monitor for aspiration. 3. Repeat labs in the a.m. 4. Continue stress ulcer and DVT prophylaxis. Job ID: [id number]
[2020-04-03] MEDS: Ferrous Sulfate 325 MG TAB PO SCH ×2 (05:08→21:07)
[2020-04-03] MEDS: Cholecalciferol 1,000 UNITS (25 MCG) TAB PO SCH ×2 (05:08→21:07)
[2020-04-03] MEDS: Lactinex Tablet PO SCH ×2 (05:08→21:10)
[2020-04-03] MEDS: Metoprolol Tartrate 25 MG TAB PO SCH ×3 (05:08→21:08)
[2020-04-03] MEDS: Simvastatin 10 MG TAB PO SCH ×2 (05:09→21:08)
[2020-04-03] MEDS: Meropenem 1 GM in Sodium Chloride 0.9% 100 ML IVPB SCH ×4 (05:09→21:11)
[2020-04-03] MEDS: Pantoprazole 40 MG GRANULES PACKET PO SCH ×2 (05:09→21:06)
[2020-04-03] MEDS: Potassium Chloride 20 MEQ TAB PO SCH (09:02)
[2020-04-03] MEDS: Enoxaparin Sodium 40 MG/0.4 ML SYRINGE SC SCH (09:04)
[2020-04-03 11:25] LABS: #Basophils 0.1 thou/uL (0.0-0.2); #Eosinphils 0.1 thou/uL (0.0-0.7); #Lymphocytes 1.7 thou/uL (1.20-3.40); #Monocytes 0.7 thou/uL (0.11-0.59); #Neutrophils 4.5 thou/uL (1.40-6.50); %Basophils 0.7 % (0.0-1.0); %Eosinophils 1.6 % (0.0-10.0); %Lymphocytes 24.6 % (21.0-51.0); %Monocytes 9.5 % (0.0-10.0); %Neutrophils 63.6 % (42.0-75.0); Hemoglobin 11.9 g/dL (12.0-16.0); Mean Corpuscular HGB CONC 31.6 g/dL (32.0-36.0); Mean Corpuscular Hemoglobin 29.5 pg (27.0-31.0); Mean Corpuscular Volume 93.3 fL (78.0-98.0); Platelet Count 317 thou/uL (130-400); RBC Distribution Width 16.2 % (11.5-14.5); Red Blood Cell (RBC) Count 4.03 mill/uL (4.20-5.40)
[2020-04-03 11:44] LABS: ALT (SGPT) 13 U/L (8-55); AST (SGOT) 17 U/L (5-34); Alkaline Phosphatase 97 U/L (40-110); Anion Gap 12 mmol/L (10-20); BUN (Urea Nitrogen) 18 mg/dL (9.8-20.1); Bilirubin, Total 0.3 mg/dL (0.2-1.2); Calc. Creatinine Clearance 120 mL/min (70-130); Calcium 8.5 mg/dL (7.8-10.44); Carbon Dioxide 28 mmol/L (23-31); Chloride 105 mmol/L (98-107); Glucose 118 mg/dL (83-110); Potassium 4.3 mmol/L (3.5-5.1); Sodium 141 mmol/L (136-145)
[2020-04-04] MEDS: Meropenem 1 GM in Sodium Chloride 0.9% 100 ML IVPB SCH ×3 (05:25→20:59)
[2020-04-04] MEDS: Metoprolol Tartrate 25 MG TAB PO SCH ×2 (08:55→20:46)
[2020-04-04] MEDS: Potassium Chloride 20 MEQ TAB PO SCH (08:56)
[2020-04-04] MEDS: Enoxaparin Sodium 40 MG/0.4 ML SYRINGE SC SCH (08:56)
[2020-04-04] MEDS: Simvastatin 10 MG TAB PO SCH (20:45)
[2020-04-04] MEDS: Lactinex Tablet PO SCH (20:45)
[2020-04-04] MEDS: Ferrous Sulfate 325 MG TAB PO SCH (20:46)
[2020-04-04] MEDS: Cholecalciferol 1,000 UNITS (25 MCG) TAB PO SCH (20:46)
[2020-04-04] MEDS: Pantoprazole 40 MG GRANULES PACKET PO SCH (20:47)
[2020-04-05] MEDS: Meropenem 1 GM in Sodium Chloride 0.9% 100 ML IVPB SCH ×3 (04:59→21:09)
[2020-04-05] MEDS: Potassium Chloride 20 MEQ TAB PO SCH (08:43)
[2020-04-05] MEDS: Enoxaparin Sodium 40 MG/0.4 ML SYRINGE SC SCH (08:43)
[2020-04-05] MEDS: Metoprolol Tartrate 25 MG TAB PO SCH ×2 (08:43→21:09)
[2020-04-05] MEDS ORDERED: Sodium Chloride 0.9% 10 ML ONE ×2 (13:15→20:21)
[2020-04-05] MEDS: Cholecalciferol 1,000 UNITS (25 MCG) TAB PO SCH (21:09)
[2020-04-05] MEDS: Lactinex Tablet PO SCH (21:09)
[2020-04-05] MEDS: Simvastatin 10 MG TAB PO SCH (21:09)
[2020-04-05] MEDS: Pantoprazole 40 MG GRANULES PACKET PO SCH (21:09)
[2020-04-05] MEDS: Ferrous Sulfate 325 MG TAB PO SCH (21:09)
[2020-04-06] MEDS: Meropenem 1 GM in Sodium Chloride 0.9% 100 ML IVPB SCH ×3 (05:49→21:29)
[2020-04-06] MEDS: Enoxaparin Sodium 40 MG/0.4 ML SYRINGE SC SCH (08:52)
[2020-04-06] MEDS: Potassium Chloride 20 MEQ TAB PO SCH (08:53)
[2020-04-06] MEDS: Metoprolol Tartrate 25 MG TAB PO SCH ×2 (08:53→20:22)
[2020-04-06] MEDS ORDERED: Sodium Chloride 0.9% 10 ML ONE (15:16)
--- NOTE | 2020-04-06 19:48 | PRG ---
DATE OF SERVICE: 04/03/2020 SUBJECTIVE: The patient feels well, lying in bed. No fever or chills. She has been eating well. No nausea, vomiting or cough. OBJECTIVE: VITAL SIGNS: Temperature is 97.7, pulse 87, respirations 20, O2 sats 82% on room air, blood pressure 105/54. LUNGS: Clear. CARDIAC: Regular rhythm. ABDOMEN: Obese and nontender. NEUROLOGIC: Stable right hemiplegia. ASSESSMENT: 1. Resolving Proteus bacteremia, on IV meropenem until April 08. 2. Stable traumatic brain injury and right hemiplegia. 3. Stable hypertension. PLAN: Continue IV meropenem until April 08. Continue to monitor for aspiration. Continue stress ulcer and DVT prophylaxis. Check labs in the morning. Job ID: [id number]
--- NOTE | 2020-04-06 19:56 | PRG ---
DATE OF SERVICE: 04/04/2020 SUBJECTIVE: The patient is lying in bed, sleeping, has not had any problems today. Has eaten well and is having normal bowel movements. OBJECTIVE: Shows, LUNGS: Clear. CARDIAC: Showed regular rhythm. ABDOMEN: Soft and nontender. NEUROLOGICAL: Shows stable right hemiplegia. LABORATORY DATA: White count 7000, hematocrit 37, hemoglobin 11. Sodium 141, potassium 4.3, chloride 105, bicarb 28, BUN 18, creatinine 0.56, glucose 118, albumin up from 2.6 to 3.0, globulin 4.0. Liver functions normal. ASSESSMENT: 1. Resolving Proteus bacteremia secondary to infected renal calculi. 2. Stable right hemiplegia secondary to traumatic brain injury. 3. Stable hypertension. PLAN: 1. Continue IV meropenem until April 08. Continue stress ulcer and DVT prophylaxis. 2. Continue to monitor for aspiration. Job ID: [id number]
--- NOTE | 2020-04-06 20:04 | PRG ---
DATE OF SERVICE: 04/06/2020 SUBJECTIVE: The patient feels well, visiting with the daughter, is asking questions about repeat labs and about whether she can stay until her procedure is scheduled again by Dr. Fraga next week. OBJECTIVE: ABDOMEN: Soft and nontender. ASSESSMENT: 1. Resolving Proteus bacteremia. 2. Bilateral renal calculi with stent in place bilaterally with the procedure scheduled by Dr. Fraga next week and will consult with him will be done secondary to COVID. 3. Stable traumatic brain injury with right hemiplegia. PLAN: Continue IV antibiotics until April 08 and plan on discharge on morning of . Discuss with Dr. Fraga's office about future plans for stent removal and further lithotripsy. Job ID: [id number]
--- NOTE | 2020-04-06 20:06 | PRG ---
DATE OF SERVICE: 04/05/2020 SUBJECTIVE: The patient is sitting up, eating, no complaints. Nurses have no complaints. OBJECTIVE: VITAL SIGNS: Show temperature is 97.8, pulse 64, respirations 18, O2 sats 96% on room air, and blood pressure 104/52. LUNGS: Clear. CARDIAC: Showed regular rhythm. ABDOMEN: Soft and nontender. NEUROLOGICAL: Shows right hemiplegia. ASSESSMENT: 1. Resolving Proteus bacteremia, on IV meropenem until April 08. 2. Bilateral renal calculi, status post bilateral lithotripsy and stent placement on the left, but not the right. 3. Hypertension, controlled to goal. PLAN: 1. Continue IV meropenem until April 08. 2. Continue to monitor for aspiration. 3. Continue to monitor vital signs. 4. Continue stress ulcer and DVT prophylaxis. Job ID: [id number]
[2020-04-06] MEDS: Lactinex Tablet PO SCH (20:20)
[2020-04-06] MEDS: Cholecalciferol 1,000 UNITS (25 MCG) TAB PO SCH (20:20)
[2020-04-06] MEDS: Pantoprazole 40 MG GRANULES PACKET PO SCH (20:21)
[2020-04-06] MEDS: Simvastatin 10 MG TAB PO SCH (20:21)
[2020-04-06] MEDS: Ferrous Sulfate 325 MG TAB PO SCH (20:21)
[2020-04-07] MEDS: Meropenem 1 GM in Sodium Chloride 0.9% 100 ML IVPB SCH ×3 (05:04→21:18)
[2020-04-07] MEDS: Metoprolol Tartrate 25 MG TAB PO SCH ×2 (08:31→20:43)
[2020-04-07] MEDS: Potassium Chloride 20 MEQ TAB PO SCH (08:31)
[2020-04-07] MEDS: Enoxaparin Sodium 40 MG/0.4 ML SYRINGE SC SCH (08:32)
[2020-04-07 19:16] LABS: Bilirubin Negative (Negative); Blood, Urine Large (Negative); Clarity Clear (Clear); Glucose, Urine (Dipstick) Negative (Negative); Ketone, Urine Trace mg/dL (Negative); Leukocyte Small (Negative); Nitrite Negative (Negative); Protein, Urine (Dipstick) 100 mg/dL (Neg-Trace); pH, Urine 8.5 (5.0-9.0)
[2020-04-07] MEDS: Lactinex Tablet PO SCH (20:42)
[2020-04-07] MEDS: Simvastatin 10 MG TAB PO SCH (20:42)
[2020-04-07] MEDS: Cholecalciferol 1,000 UNITS (25 MCG) TAB PO SCH (20:42)
[2020-04-07] MEDS: Ferrous Sulfate 325 MG TAB PO SCH (20:43)
[2020-04-07] MEDS: Pantoprazole 40 MG GRANULES PACKET PO SCH (20:43)
[2020-04-07 21:11] LABS: Bacteria/HPF Rare-Few HPF (None Seen); RBC/HPF Greater than 50 HPF (0-3)
[2020-04-07 21:12] LABS: Urine Culture Reflex No No
[2020-04-08] MEDS: Meropenem 1 GM in Sodium Chloride 0.9% 100 ML IVPB SCH ×3 (05:09→20:59)
[2020-04-08 06:05] LABS: #Basophils 0.1 thou/uL (0.0-0.2); #Eosinphils 0.1 thou/uL (0.0-0.7); #Monocytes 0.7 thou/uL (0.11-0.59); #Neutrophils 2.6 thou/uL (1.40-6.50); %Basophils 1.4 % (0.0-1.0); %Eosinophils 2.4 % (0.0-10.0); %Lymphocytes 35.7 % (21.0-51.0); %Monocytes 12.9 % (0.0-10.0); %Neutrophils 47.7 % (42.0-75.0); Hemoglobin 11.2 g/dL (12.0-16.0); Mean Corpuscular HGB CONC 32.4 g/dL (32.0-36.0); Mean Corpuscular Hemoglobin 29.9 pg (27.0-31.0); Mean Corpuscular Volume 92.3 fL (78.0-98.0); Mean Platelet Volume 6.6 fL (7.4-10.4); Platelet Count 321 thou/uL (130-400); RBC Distribution Width 15.6 % (11.5-14.5); Red Blood Cell (RBC) Count 3.74 mill/uL (4.20-5.40); White Blood Cell (WBC) Count 5.5 thou/uL (4.8-10.8)
--- NOTE | 2020-04-08 06:33 | PRG ---
DATE OF SERVICE: 04/07/2020 SUBJECTIVE: The patient is awake and alert, but somewhat more confused and agitated, yelling out at times when she is alone in the room and this is unchanged from previous behavior. OBJECTIVE: VITAL SIGNS: Show temperature is 98.4, pulse 74, respirations 18, O2 sats 94% on room air, and blood pressure is 118/57. LUNGS: Clear. CARDIAC: Shows regular rhythm. ABDOMEN: Soft, nontender. Urinalysis does show persistent hematuria greater than 50 with 11 to 12 wbc. ASSESSMENT: 1. Proteus bacteremia on IV meropenem to finish on the , but with new change in mental status concerning about recurrent persistent infection. 2. Stable traumatic brain injury, possibly causing change in mental status today. We will monitor closely. 3. Stable right hemiplegia from traumatic brain injury with noted evidence of aspiration. 4. Hypertension, controlled to goal. PLAN: Obtain urine culture today. Repeat CBC in the a.m. Continue IV meropenem and monitor neurological status. Job ID: [id number]
[2020-04-08] MEDS: Potassium Chloride 20 MEQ TAB PO SCH (08:56)
[2020-04-08] MEDS: Metoprolol Tartrate 25 MG TAB PO SCH ×2 (08:56→20:58)
[2020-04-08] MEDS: Enoxaparin Sodium 40 MG/0.4 ML SYRINGE SC SCH (08:57)
[2020-04-08] MEDS: Ferrous Sulfate 325 MG TAB PO SCH (20:58)
[2020-04-08] MEDS: Cholecalciferol 1,000 UNITS (25 MCG) TAB PO SCH (20:58)
[2020-04-08] MEDS: Simvastatin 10 MG TAB PO SCH (20:59)
[2020-04-08] MEDS: Pantoprazole 40 MG GRANULES PACKET PO SCH (20:59)
[2020-04-08] MEDS: Lactinex Tablet PO SCH (21:00)
[2020-04-09 05:26] LABS: #Basophils 0.1 thou/uL (0.0-0.2); #Eosinphils 0.2 thou/uL (0.0-0.7); #Monocytes 0.7 thou/uL (0.11-0.59); #Neutrophils 2.9 thou/uL (1.40-6.50); %Basophils 1.3 % (0.0-1.0); %Eosinophils 3.2 % (0.0-10.0); %Lymphocytes 33.9 % (21.0-51.0); %Monocytes 11.3 % (0.0-10.0); %Neutrophils 50.4 % (42.0-75.0); Hemoglobin 11.6 g/dL (12.0-16.0); Mean Corpuscular HGB CONC 33.2 g/dL (32.0-36.0); Mean Corpuscular Hemoglobin 30.7 pg (27.0-31.0); Mean Corpuscular Volume 92.5 fL (78.0-98.0); Mean Platelet Volume 6.6 fL (7.4-10.4); Platelet Count 304 thou/uL (130-400); RBC Distribution Width 15.4 % (11.5-14.5); Red Blood Cell (RBC) Count 3.77 mill/uL (4.20-5.40); White Blood Cell (WBC) Count 5.8 thou/uL (4.8-10.8)
[2020-04-09] MEDS: Meropenem 1 GM in Sodium Chloride 0.9% 100 ML IVPB SCH ×3 (05:27→21:02)
[2020-04-09] MEDS: Enoxaparin Sodium 40 MG/0.4 ML SYRINGE SC SCH (08:51)
[2020-04-09] MEDS: Potassium Chloride 20 MEQ TAB PO SCH (08:51)
[2020-04-09] MEDS: Metoprolol Tartrate 25 MG TAB PO SCH ×2 (08:51→21:01)
[2020-04-09] MEDS: Cholecalciferol 1,000 UNITS (25 MCG) TAB PO SCH (21:00)
[2020-04-09] MEDS: Lactinex Tablet PO SCH (21:00)
[2020-04-09] MEDS: Ferrous Sulfate 325 MG TAB PO SCH (21:01)
[2020-04-09] MEDS: Simvastatin 10 MG TAB PO SCH (21:01)
[2020-04-09] MEDS: Pantoprazole 40 MG GRANULES PACKET PO SCH (21:02)
[2020-04-10] MEDS: Meropenem 1 GM in Sodium Chloride 0.9% 100 ML IVPB SCH ×3 (05:20→20:44)
[2020-04-10] MEDS: Metoprolol Tartrate 25 MG TAB PO SCH ×2 (08:27→20:44)
[2020-04-10] MEDS: Potassium Chloride 20 MEQ TAB PO SCH (08:27)
[2020-04-10] MEDS: Enoxaparin Sodium 40 MG/0.4 ML SYRINGE SC SCH (08:27)
--- NOTE | 2020-04-10 08:53 | PRG ---
DATE OF SERVICE: 04/10/2020 SUBJECTIVE: The patient is here for PT and OT services along with IV meropenem for Proteus bacteremia. The patient continued to have mental status changes and primary team is concerned about a persistent infection. A UA was taken, which was positive for UTI with 11-12 wbc's and hematuria. The patient was continued on meropenem, even though she was scheduled to be finished on the . Her meropenem has been continued due to concern for persistent infection. We are awaiting urine culture for this. Otherwise, the patient is awake and alert, however, still confused. No acute distress. OBJECTIVE: VITAL SIGNS: Temperature 97.3 to 97.9, pulse 67 to 70, respirations 18 to 20, O2 sats 94% to 95% on room air, blood pressure 120/54 to 114/60. HEART: Regular rate and rhythm. No murmurs, gallops, or rubs. LUNGS: Clear to auscultation bilaterally. ABDOMEN: Soft, nontender to palpation. Bowel sounds positive in all 4 quadrants. ASSESSMENT: 1. Proteus bacteremia, on IV meropenem, with continued course due to concern for recurrent persistent infection. 2. Stable traumatic brain injury. 3. Stable right hemiplegia. 4. Hypertension, controlled at goal. PLAN: Continue IV meropenem. We will continue to trend CBCs to look for any leukocytosis and monitor neurologic status. Job ID: [id number]
[2020-04-10] MEDS ORDERED: Sodium Chloride 0.9% 10 ML ONE (13:28)
[2020-04-10] MEDS: Lactinex Tablet PO SCH (20:43)
[2020-04-10] MEDS: Simvastatin 10 MG TAB PO SCH (20:43)
[2020-04-10] MEDS: Cholecalciferol 1,000 UNITS (25 MCG) TAB PO SCH (20:43)
[2020-04-10] MEDS: Ferrous Sulfate 325 MG TAB PO SCH (20:44)
[2020-04-10] MEDS: Pantoprazole 40 MG GRANULES PACKET PO SCH (20:47)
[2020-04-11] MEDS: Meropenem 1 GM in Sodium Chloride 0.9% 100 ML IVPB SCH ×3 (05:32→21:18)
[2020-04-11] MEDS: Potassium Chloride 20 MEQ TAB PO SCH (08:45)
[2020-04-11] MEDS: Metoprolol Tartrate 25 MG TAB PO SCH ×2 (08:45→20:31)
[2020-04-11] MEDS: Enoxaparin Sodium 40 MG/0.4 ML SYRINGE SC SCH (08:45)
[2020-04-11] MEDS ORDERED: Sodium Chloride 0.9% 10 ML ONE (13:16)
[2020-04-11 18:43] VITALS: BMI 30.5
[2020-04-11] MEDS ORDERED: Sodium Chloride 0.9% 40 ML ONE (20:19)
[2020-04-11] MEDS: Lactinex Tablet PO SCH (20:31)
[2020-04-11] MEDS: Cholecalciferol 1,000 UNITS (25 MCG) TAB PO SCH (20:31)
[2020-04-11] MEDS: Pantoprazole 40 MG GRANULES PACKET PO SCH (20:31)
[2020-04-11] MEDS: Ferrous Sulfate 325 MG TAB PO SCH (20:31)
[2020-04-11] MEDS: Simvastatin 10 MG TAB PO SCH (20:32)
[2020-04-12] MEDS: Meropenem 1 GM in Sodium Chloride 0.9% 100 ML IVPB SCH ×3 (05:50→21:15)
[2020-04-12] MEDS: Enoxaparin Sodium 40 MG/0.4 ML SYRINGE SC SCH (08:23)
[2020-04-12] MEDS: Potassium Chloride 20 MEQ TAB PO SCH (08:24)
[2020-04-12] MEDS: Metoprolol Tartrate 25 MG TAB PO SCH ×2 (08:24→21:16)
--- NOTE | 2020-04-12 15:00 | PRG ---
DATE OF SERVICE: 04/12/2020 SUBJECTIVE: The patient feels well, lying in bed with no complaints. Still on IV meropenem. Awaiting urological removal of her stents and possibly her more lithotripsy as her urologist is requested she will be on antibiotics prior to the procedure. OBJECTIVE: VITAL SIGNS: Shows temperature is 96.6, pulse 64, respirations 16, O2 saturations 95% on room air, blood pressure 125/61. LUNGS: Clear. CARDIAC: Shows regular rhythm. ABDOMEN: Soft and nontender. ASSESSMENT: 1. Resolving Proteus bacteremia. 2. Persistent renal calculi and urinary tract infection. 3. Stable traumatic brain injury and right hemiplegia. 4. Stable hypertension. PLAN: 1. Continue IV meropenem. 2. Coordinate transfer to [facility] for lithotripsy. 3. Continue to monitor vital signs closely. Job ID: [id number]
[2020-04-12] MEDS: Simvastatin 10 MG TAB PO SCH (21:16)
[2020-04-12] MEDS: Pantoprazole 40 MG GRANULES PACKET PO SCH (21:16)
[2020-04-12] MEDS: Cholecalciferol 1,000 UNITS (25 MCG) TAB PO SCH (21:16)
[2020-04-12] MEDS: Lactinex Tablet PO SCH (21:16)
[2020-04-12] MEDS: Ferrous Sulfate 325 MG TAB PO SCH (21:16)
[2020-04-13] MEDS: Meropenem 1 GM in Sodium Chloride 0.9% 100 ML IVPB SCH ×3 (06:10→21:09)
[2020-04-13] MEDS: Potassium Chloride 20 MEQ TAB PO SCH (08:24)
[2020-04-13] MEDS: Enoxaparin Sodium 40 MG/0.4 ML SYRINGE SC SCH (08:24)
[2020-04-13] MEDS: Metoprolol Tartrate 25 MG TAB PO SCH ×2 (08:25→21:10)
[2020-04-13] MEDS ORDERED: Nystatin 500,000 UNITS/5 ML UDCUP SSW SCH (09:00)
[2020-04-13 13:08] LABS: SARS-CoV-2 PCR by NAA Not Detected (NotDetected)
[2020-04-13] MEDS: Lactinex Tablet PO SCH (21:09)
[2020-04-13] MEDS: Cholecalciferol 1,000 UNITS (25 MCG) TAB PO SCH (21:09)
[2020-04-13] MEDS: Ferrous Sulfate 325 MG TAB PO SCH (21:10)
[2020-04-13] MEDS: Simvastatin 10 MG TAB PO SCH (21:10)
[2020-04-13] MEDS: Pantoprazole 40 MG GRANULES PACKET PO SCH (21:11)
[2020-04-14] MEDS: Meropenem 1 GM in Sodium Chloride 0.9% 100 ML IVPB SCH ×3 (06:02→21:37)
[2020-04-14] MEDS: Potassium Chloride 20 MEQ TAB PO SCH (12:08)
[2020-04-14] MEDS: Metoprolol Tartrate 25 MG TAB PO SCH ×2 (12:08→21:37)
[2020-04-14 19:54] VITALS: TEMP 98.1
[2020-04-14] MEDS ORDERED: Metoprolol Tartrate 50 MG TAB ONE (21:32)
[2020-04-14] MEDS ORDERED: Metoprolol Tartrate 25 MG TAB ONE (21:33)
[2020-04-14] MEDS: Ferrous Sulfate 325 MG TAB PO SCH (21:37)
[2020-04-14] MEDS: Pantoprazole 40 MG GRANULES PACKET PO SCH (21:37)
[2020-04-14] MEDS: Simvastatin 10 MG TAB PO SCH (21:37)
[2020-04-14] MEDS: Cholecalciferol 1,000 UNITS (25 MCG) TAB PO SCH (21:37)
[2020-04-14] MEDS: Lactinex Tablet PO SCH (23:59)
[2020-04-15] MEDS: Meropenem 1 GM in Sodium Chloride 0.9% 100 ML IVPB SCH (05:00)
--- NOTE | 2020-04-15 06:44 | PRG ---
DATE OF SERVICE: 04/13/2020 SUBJECTIVE: The patient is sitting up in bed, eating supper, alert, in no distress. Baseline mental status. OBJECTIVE: VITAL SIGNS: Show temperature is 96.5, pulse 57, respirations 18, O2 saturations 95% on room air, and blood pressure is 119/56. LUNGS: Clear. CARDIAC: Shows regular rhythm. ABDOMEN: Obese, nontender. SKIN/EXTREMITIES: Showed no edema, clubbing, or cyanosis. NEUROLOGIC: Shows chronic right hemiplegia. ASSESSMENT: 1. Resolving Proteus bacteremia. 2. Persistent renal calculi. 3. Stable traumatic brain injury, right hemiplegia. 4. Stable hypertension. PLAN: Continue IV meropenem until discharge on April 15, will be discharged and transferred to [facility] for outpatient lithotripsy. Job ID: [id number]
--- NOTE | 2020-04-15 06:57 | PRG ---
DATE OF SERVICE: 04/14/2020 SUBJECTIVE: The patient is awake and alert, in no distress. Eating well with no cough or shortness of breath. OBJECTIVE: VITAL SIGNS: Temperature 98.1, pulse 61, respirations 20, O2 sats 93% on room air, blood pressure 114/53. LUNGS: Clear. CARDIAC: Shows regular rhythm. ABDOMEN: Soft and nontender. NEUROLOGIC: Shows right hemiplegia. ASSESSMENT: 1. Resolving Proteus bacteremia and sepsis, status post lithotripsy for persistent renal calculi schedule for discharge tomorrow for outpatient lithotripsy again by Dr. Fredi Fraga. 2. Stable right hemiplegia secondary to distant traumatic brain injury. 3. Stable hypertension. PLAN: Continue IV meropenem until tomorrow morning and discharged to be transferred by ambulance for outpatient lithotripsy under the care of Dr. Fredi Fraga. Job ID: [id number]
[2020-04-15 07:54] VITALS: BP 108/57
[2020-04-15] MEDS ORDERED: Metoprolol Tartrate 25 MG TAB ONE (08:22)
[2020-04-15] MEDS: Metoprolol Tartrate 25 MG TAB PO SCH (08:27)
[2020-04-15] MEDS: Potassium Chloride 20 MEQ TAB PO SCH (08:29)
--- NOTE | 2020-04-20 20:48 | PQF ---
CLINICAL DOCUMENTATION CLARIFICATION FORM: Dear : David Simon MD Date / Time: 04/21/2020 Please exercise your independent, professional judgment in responding to the clarification form. Clinical indicators are provided on the bottom of this form for your review Please check appropriate box(es): [ x ] Sepsis is a complication of recent lithotripsy surgery [ x ] Sepsis is a complication of urinary stents [ ] sepsis is not a complication of recent lithotripsy surgery and urinary stents [ ] Other diagnosis (Please specify if any) [ ] Unable to determine In addition, please specify: Present on Admission (POA): [x ] Yes [ ] No [ ] Unable to determine Physician Signature: Date/Time: For continuity of documentation, please document condition throughout progress notes and discharge summary. Thank You. To be completed by CDI/Coding staff for physician review: Present Clinical Indicators - Signs / Symptoms / Labs Results and Location in Medical Record [x] Undergone bilateral lithotripsy & stents , but had developed proteus gram- negative bactermia with septic shock H&P on 03/27 [x] S/p lithotripsy, stenting, with subsequet proteus bacteremia,septic shock Progress notes on 03/27 [x] Resolving proteus bacteremia secondary to infected renal calculi Progress notes on 04/04 [x] Resolving proteus bacteremia, on IV meropenem until apr 08 Progress notes on 04/05 [ ] Blood cultures [ ] Dehiscence [ ] Bleeding [ ] Infection Present Risk Factors Results and Location in Medical Record [x] Recent surgery bilateral lithotripsy & stents H&P on 03/27 [ ] Poor healing factors (advanced age / debility / obesity / chronic conditions) [ ] Recent use of antibiotics [ ] Present Treatments Results and Location in Medical Record [x] Meropenem 1gm Medication from 03/26 to 04/06 [ ] IV Fluids [ ] Surgical procedure/ Evaluation [ ] CDS/Adhesion Tester Signature: AAS Phone #: Date/Time: 04/21/2020 This is a permanent part of the Medical Record [facility]
== END 2020-04-15 10:00 | disposition home or self-care (01) | DRG 862 ==
LOC: NAV ACUTE 17:30
PROVIDERS: ADMIT Internal Medicine; ATTEND Internal Medicine
DX: T81.44XA Sepsis following a procedure, initial encounter (principal); T81.12XA Postprocedural septic shock, initial encounter; A41.59 Other Gram-negative sepsis; T83.593A Infection and inflammatory reaction due to other urinary stents, initial encounter; G81.91 Hemiplegia, unspecified affecting right dominant side; R47.01 Aphasia; I47.1 Supraventricular tachycardia; Y83.9 Surgical procedure, unspecified as the cause of abnormal reaction of the patient, or of later complication, without mention of misadventure at the time of the procedure; J44.9 Chronic obstructive pulmonary disease, unspecified; I10 Essential (primary) hypertension; R53.81 Other malaise; Z20.822 Contact with and (suspected) exposure to COVID-19; E78.5 Hyperlipidemia, unspecified; K59.09 Other constipation; R41.89 Other symptoms and signs involving cognitive functions and awareness; F41.9 Anxiety disorder, unspecified; F32.9 Major depressive disorder, single episode, unspecified; I25.2 Old myocardial infarction; Z90.710 Acquired absence of both cervix and uterus; Z93.0 Tracheostomy status; S06.309S Unspecified focal traumatic brain injury with loss of consciousness of unspecified duration, sequela
CPT/HCPCS: 36415; 80053; 81001; 85007; 85025; 85027; 87086; 87635; J1650; J2185; J3490; U0003; U0005

== ENCOUNTER 2020-08-13 22:09 | Inpatient (IN) | payer MEDICARE, MEDICAID ==
[2020-08-14] MEDS ORDERED: Acetaminophen 325 MG TAB PO PRN (01:02)
[2020-08-14] MEDS: Meropenem 1 GM in Sodium Chloride 0.9% 100 ML IVPB SCH ×3 (02:09→18:09)
[2020-08-14 10:27] LABS: #Basophils 0.1 thou/uL (0.0-0.2); #Eosinphils 0.2 thou/uL (0.0-0.7); #Lymphocytes 1.3 thou/uL (1.20-3.40); #Monocytes 0.7 thou/uL (0.11-0.59); #Neutrophils 5.3 thou/uL (1.40-6.50); %Lymphocytes 17.5 % (21.0-51.0); %Monocytes 8.6 % (0.0-10.0); %Neutrophils 70.8 % (42.0-75.0); Hemoglobin 12.6 g/dL (12.0-16.0); Mean Corpuscular Hemoglobin 29.6 pg (27.0-31.0); Mean Corpuscular Volume 98.6 fL (78.0-98.0); Mean Platelet Volume 6.3 fL (7.4-10.4); Platelet Count 146 thou/uL (130-400); RBC Distribution Width 13.3 % (11.5-14.5); Red Blood Cell (RBC) Count 4.25 mill/uL (4.20-5.40); White Blood Cell (WBC) Count 7.5 thou/uL (4.8-10.8)
[2020-08-14] MEDS: Bisacodyl 5 MG TAB PO SCH (10:33)
[2020-08-14] MEDS: Senokot S 8.6-50 MG TAB PO SCH ×2 (10:34→21:52)
[2020-08-14] MEDS: Polyethylene Glycol 3350 17 GM Packet PO SCH (10:34)
[2020-08-14] MEDS: Lisinopril 10 MG TAB PO SCH (10:34)
[2020-08-14 10:39] LABS: Anion Gap 14 mmol/L (10-20); BUN (Urea Nitrogen) 7 mg/dL (9.8-20.1); Calc. Creatinine Clearance 129 mL/min (70-130); Calcium 7.8 mg/dL (7.8-10.44); Carbon Dioxide 23 mmol/L (23-31); Chloride 108 mmol/L (98-107); Glucose 133 mg/dL (83-110); Potassium 3.5 mmol/L (3.5-5.1); Sodium 141 mmol/L (136-145)
[2020-08-14] MEDS ORDERED: Sodium Chloride 0.9% 10 ML ONE ×2 (11:14→18:05)
[2020-08-14] MEDS: Lactinex Tablet PO SCH (21:51)
[2020-08-14] MEDS: Cholecalciferol 1,000 UNITS (25 MCG) TAB PO SCH (21:51)
[2020-08-14] MEDS: Simvastatin 10 MG TAB PO SCH (21:52)
[2020-08-14] MEDS: Ferrous Sulfate 325 MG TAB PO SCH (21:52)
[2020-08-14] MEDS: Pantoprazole 40 MG GRANULES PACKET PO SCH (21:53)
[2020-08-15] MEDS: Meropenem 1 GM in Sodium Chloride 0.9% 100 ML IVPB SCH ×3 (02:37→17:26)
[2020-08-15] MEDS: Senokot S 8.6-50 MG TAB PO SCH ×2 (09:14→21:15)
[2020-08-15] MEDS: Polyethylene Glycol 3350 17 GM Packet PO SCH (09:14)
[2020-08-15] MEDS: Lisinopril 10 MG TAB PO SCH (09:15)
[2020-08-15] MEDS: Bisacodyl 5 MG TAB PO SCH (09:18)
[2020-08-15] MEDS: Lactinex Tablet PO SCH (21:14)
[2020-08-15] MEDS: Ferrous Sulfate 325 MG TAB PO SCH (21:15)
[2020-08-15] MEDS: Cholecalciferol 1,000 UNITS (25 MCG) TAB PO SCH (21:15)
[2020-08-15] MEDS: Simvastatin 10 MG TAB PO SCH (21:15)
[2020-08-15] MEDS: Pantoprazole 40 MG GRANULES PACKET PO SCH (21:16)
[2020-08-16] MEDS: Meropenem 1 GM in Sodium Chloride 0.9% 100 ML IVPB SCH ×3 (01:27→17:11)
[2020-08-16] MEDS: Lisinopril 10 MG TAB PO SCH (08:41)
[2020-08-16] MEDS: Senokot S 8.6-50 MG TAB PO SCH ×2 (08:41→21:10)
[2020-08-16] MEDS: Bisacodyl 5 MG TAB PO SCH (08:41)
[2020-08-16] MEDS: Polyethylene Glycol 3350 17 GM Packet PO SCH (08:42)
[2020-08-16] MEDS: Cholecalciferol 1,000 UNITS (25 MCG) TAB PO SCH (21:10)
[2020-08-16] MEDS: Lactinex Tablet PO SCH (21:10)
[2020-08-16] MEDS: Ferrous Sulfate 325 MG TAB PO SCH (21:10)
[2020-08-16] MEDS: Simvastatin 10 MG TAB PO SCH (21:11)
[2020-08-17] MEDS: Meropenem 1 GM in Sodium Chloride 0.9% 100 ML IVPB SCH ×3 (00:51→17:43)
[2020-08-17] MEDS: Senokot S 8.6-50 MG TAB PO SCH ×2 (09:11→21:04)
[2020-08-17] MEDS: Polyethylene Glycol 3350 17 GM Packet PO SCH (09:11)
[2020-08-17] MEDS: Lisinopril 10 MG TAB PO SCH (09:11)
[2020-08-17] MEDS: Bisacodyl 5 MG TAB PO SCH (09:12)
[2020-08-17] MEDS: Simvastatin 10 MG TAB PO SCH (21:04)
[2020-08-17] MEDS: Ferrous Sulfate 325 MG TAB PO SCH (21:04)
[2020-08-17] MEDS: Cholecalciferol 1,000 UNITS (25 MCG) TAB PO SCH (21:04)
[2020-08-17] MEDS: Lactinex Tablet PO SCH (21:04)
[2020-08-18] MEDS: Meropenem 1 GM in Sodium Chloride 0.9% 100 ML IVPB SCH ×3 (01:13→18:30)
[2020-08-18] MEDS: Bisacodyl 5 MG TAB PO SCH (09:13)
[2020-08-18] MEDS: Polyethylene Glycol 3350 17 GM Packet PO SCH (09:13)
[2020-08-18] MEDS: Senokot S 8.6-50 MG TAB PO SCH ×2 (09:13→20:35)
[2020-08-18] MEDS: Lisinopril 10 MG TAB PO SCH (09:14)
[2020-08-18] MEDS: Lactinex Tablet PO SCH (20:34)
[2020-08-18] MEDS: Ferrous Sulfate 325 MG TAB PO SCH (20:35)
[2020-08-18] MEDS: Cholecalciferol 1,000 UNITS (25 MCG) TAB PO SCH (20:35)
[2020-08-18] MEDS: Simvastatin 10 MG TAB PO SCH (20:35)
[2020-08-19] MEDS: Meropenem 1 GM in Sodium Chloride 0.9% 100 ML IVPB SCH ×3 (01:11→17:20)
[2020-08-19] MEDS: Bisacodyl 5 MG TAB PO SCH (09:28)
[2020-08-19] MEDS: Lisinopril 10 MG TAB PO SCH (09:28)
[2020-08-19] MEDS: Senokot S 8.6-50 MG TAB PO SCH ×2 (09:28→20:49)
[2020-08-19] MEDS: Polyethylene Glycol 3350 17 GM Packet PO SCH (09:29)
[2020-08-19] MEDS: Lactinex Tablet PO SCH (20:48)
[2020-08-19] MEDS: Cholecalciferol 1,000 UNITS (25 MCG) TAB PO SCH (20:49)
[2020-08-19] MEDS: Ferrous Sulfate 325 MG TAB PO SCH (20:50)
[2020-08-19] MEDS: Simvastatin 10 MG TAB PO SCH (20:50)
[2020-08-20] MEDS: Meropenem 1 GM in Sodium Chloride 0.9% 100 ML IVPB SCH ×3 (01:01→17:20)
[2020-08-20] MEDS: Bisacodyl 5 MG TAB PO SCH (09:31)
[2020-08-20] MEDS: Senokot S 8.6-50 MG TAB PO SCH ×2 (09:31→21:58)
[2020-08-20] MEDS: Polyethylene Glycol 3350 17 GM Packet PO SCH (09:31)
[2020-08-20] MEDS: Lisinopril 10 MG TAB PO SCH (09:32)
[2020-08-20] MEDS: Cholecalciferol 1,000 UNITS (25 MCG) TAB PO SCH (21:58)
[2020-08-20] MEDS: Lactinex Tablet PO SCH (21:58)
[2020-08-20] MEDS: Ferrous Sulfate 325 MG TAB PO SCH (21:58)
[2020-08-20] MEDS: Simvastatin 10 MG TAB PO SCH (21:59)
[2020-08-21] MEDS: Meropenem 1 GM in Sodium Chloride 0.9% 100 ML IVPB SCH ×3 (02:36→18:01)
[2020-08-21] MEDS: Bisacodyl 5 MG TAB PO SCH (09:34)
[2020-08-21] MEDS: Senokot S 8.6-50 MG TAB PO SCH ×2 (09:34→20:57)
[2020-08-21] MEDS: Polyethylene Glycol 3350 17 GM Packet PO SCH (09:34)
[2020-08-21] MEDS: Lisinopril 10 MG TAB PO SCH (09:34)
[2020-08-21 16:36] LABS: SARS-CoV-2 NAA Rapid Test Not Detected (NotDetected)
[2020-08-21] MEDS: Lactinex Tablet PO SCH (20:55)
[2020-08-21] MEDS: Cholecalciferol 1,000 UNITS (25 MCG) TAB PO SCH (20:56)
[2020-08-21] MEDS: Simvastatin 10 MG TAB PO SCH (20:56)
[2020-08-21] MEDS: Ferrous Sulfate 325 MG TAB PO SCH (20:56)
[2020-08-22] MEDS: Meropenem 1 GM in Sodium Chloride 0.9% 100 ML IVPB SCH ×3 (01:15→17:47)
[2020-08-22] MEDS: Polyethylene Glycol 3350 17 GM Packet PO SCH (09:50)
[2020-08-22] MEDS: Senokot S 8.6-50 MG TAB PO SCH ×2 (09:50→20:58)
[2020-08-22] MEDS: Bisacodyl 5 MG TAB PO SCH (09:50)
[2020-08-22] MEDS: Lisinopril 10 MG TAB PO SCH (09:51)
[2020-08-22 17:54] VITALS: BMI 36.2
[2020-08-22] MEDS: Simvastatin 10 MG TAB PO SCH (20:57)
[2020-08-22] MEDS: Lactinex Tablet PO SCH (20:57)
[2020-08-22] MEDS: Cholecalciferol 1,000 UNITS (25 MCG) TAB PO SCH (20:57)
[2020-08-22] MEDS: Ferrous Sulfate 325 MG TAB PO SCH (20:58)
[2020-08-23] MEDS: Meropenem 1 GM in Sodium Chloride 0.9% 100 ML IVPB SCH ×3 (01:27→17:49)
[2020-08-23] MEDS: Bisacodyl 5 MG TAB PO SCH (10:19)
[2020-08-23] MEDS: Senokot S 8.6-50 MG TAB PO SCH ×2 (10:19→21:13)
[2020-08-23] MEDS: Polyethylene Glycol 3350 17 GM Packet PO SCH (10:20)
[2020-08-23] MEDS: Lisinopril 10 MG TAB PO SCH (10:20)
[2020-08-23] MEDS: Lactinex Tablet PO SCH (21:11)
[2020-08-23] MEDS: Cholecalciferol 1,000 UNITS (25 MCG) TAB PO SCH (21:12)
[2020-08-23] MEDS: Ferrous Sulfate 325 MG TAB PO SCH (21:13)
[2020-08-23] MEDS: Simvastatin 10 MG TAB PO SCH (21:13)
[2020-08-24] MEDS: Meropenem 1 GM in Sodium Chloride 0.9% 100 ML IVPB SCH ×3 (01:01→17:27)
[2020-08-24] MEDS: Bisacodyl 5 MG TAB PO SCH (09:47)
[2020-08-24] MEDS: Senokot S 8.6-50 MG TAB PO SCH ×2 (09:47→20:38)
[2020-08-24] MEDS: Polyethylene Glycol 3350 17 GM Packet PO SCH (09:47)
[2020-08-24] MEDS: Lisinopril 10 MG TAB PO SCH (09:48)
[2020-08-24 13:35] LABS: #Basophils 0.1 thou/uL (0.0-0.2); #Eosinphils 0.1 thou/uL (0.0-0.7); #Lymphocytes 1.5 thou/uL (1.20-3.40); #Monocytes 0.6 thou/uL (0.11-0.59); #Neutrophils 3.6 thou/uL (1.40-6.50); %Basophils 1.2 % (0.0-1.0); %Eosinophils 1.8 % (0.0-10.0); %Monocytes 9.9 % (0.0-10.0); %Neutrophils 61.1 % (42.0-75.0); Mean Corpuscular HGB CONC 30.3 g/dL (32.0-36.0); Mean Corpuscular Hemoglobin 29.3 pg (27.0-31.0); Mean Corpuscular Volume 96.6 fL (78.0-98.0); Mean Platelet Volume 6.6 fL (7.4-10.4); Platelet Count 314 thou/uL (130-400); White Blood Cell (WBC) Count 5.8 thou/uL (4.8-10.8)
[2020-08-24 13:53] LABS: ALT (SGPT) 9 U/L (8-55); AST (SGOT) 13 U/L (5-34); Albumin 3.1 g/dL (3.4-4.8); Alkaline Phosphatase 122 U/L (40-110); Anion Gap 11 mmol/L (10-20); BUN (Urea Nitrogen) 12 mg/dL (9.8-20.1); Bilirubin, Total 0.5 mg/dL (0.2-1.2); Calc. Creatinine Clearance 127 mL/min (70-130); Calcium 8.4 mg/dL (7.8-10.44); Carbon Dioxide 29 mmol/L (23-31); Chloride 103 mmol/L (98-107); Globulin 3.8 g/dL (2.4-3.5); Glucose 98 mg/dL (83-110); Potassium 4.4 mmol/L (3.5-5.1); Protein, Total 6.9 g/dL (5.8-8.1); Sodium 139 mmol/L (136-145)
[2020-08-24] MEDS: Cholecalciferol 1,000 UNITS (25 MCG) TAB PO SCH (20:38)
[2020-08-24] MEDS: Simvastatin 10 MG TAB PO SCH (20:39)
[2020-08-24] MEDS: Ferrous Sulfate 325 MG TAB PO SCH (20:39)
[2020-08-24] MEDS: Lactinex Tablet PO SCH (20:39)
[2020-08-25] MEDS: Meropenem 1 GM in Sodium Chloride 0.9% 100 ML IVPB SCH ×3 (01:34→17:44)
[2020-08-25] MEDS: Lisinopril 10 MG TAB PO SCH (09:24)
[2020-08-25] MEDS: Senokot S 8.6-50 MG TAB PO SCH ×2 (09:24→20:38)
[2020-08-25] MEDS: Bisacodyl 5 MG TAB PO SCH (09:24)
[2020-08-25] MEDS: Polyethylene Glycol 3350 17 GM Packet PO SCH (09:24)
[2020-08-25] MEDS: Ferrous Sulfate 325 MG TAB PO SCH (20:35)
[2020-08-25] MEDS: Cholecalciferol 1,000 UNITS (25 MCG) TAB PO SCH (20:35)
[2020-08-25] MEDS: Simvastatin 10 MG TAB PO SCH (20:36)
[2020-08-25] MEDS: Lactinex Tablet PO SCH (20:36)
[2020-08-26] MEDS: Meropenem 1 GM in Sodium Chloride 0.9% 100 ML IVPB SCH ×3 (01:54→17:55)
[2020-08-26] MEDS: Lisinopril 10 MG TAB PO SCH (10:16)
[2020-08-26] MEDS: Bisacodyl 5 MG TAB PO SCH (10:16)
[2020-08-26] MEDS: Senokot S 8.6-50 MG TAB PO SCH ×2 (10:17→21:01)
[2020-08-26] MEDS: Polyethylene Glycol 3350 17 GM Packet PO SCH (10:17)
[2020-08-26] MEDS: Lactinex Tablet PO SCH (21:00)
[2020-08-26] MEDS: Ferrous Sulfate 325 MG TAB PO SCH (21:01)
[2020-08-26] MEDS: Simvastatin 10 MG TAB PO SCH (21:01)
[2020-08-26] MEDS: Cholecalciferol 1,000 UNITS (25 MCG) TAB PO SCH (21:01)
[2020-08-27] MEDS: Meropenem 1 GM in Sodium Chloride 0.9% 100 ML IVPB SCH ×2 (04:40→11:16)
[2020-08-27] MEDS: Senokot S 8.6-50 MG TAB PO SCH (08:46)
[2020-08-27] MEDS: Lisinopril 10 MG TAB PO SCH ×2 (08:47→10:20)
[2020-08-27] MEDS: Polyethylene Glycol 3350 17 GM Packet PO SCH (08:47)
[2020-08-27] MEDS: Bisacodyl 5 MG TAB PO SCH (08:47)
[2020-08-27 15:02] VITALS: BP 106/59; TEMP 97.8
[2020-08-27] MEDS ORDERED: Ciprofloxacin 500 MG TAB PO SCH (20:00)
== END 2020-08-27 14:45 | disposition home health service (06) | DRG 872 ==
LOC: NAV ACUTE 22:09
PROVIDERS: ADMIT Family Medicine; ATTEND Family Medicine
DX: A41.51 Sepsis due to Escherichia coli [E. coli] (principal); N12 Tubulo-interstitial nephritis, not specified as acute or chronic; N20.1 Calculus of ureter; G81.11 Spastic hemiplegia affecting right dominant side; A41.89 Other specified sepsis; K52.89 Other specified noninfective gastroenteritis and colitis; I10 Essential (primary) hypertension; T17.900A Unspecified foreign body in respiratory tract, part unspecified causing asphyxiation, initial encounter; E78.5 Hyperlipidemia, unspecified; R53.81 Other malaise; F41.9 Anxiety disorder, unspecified; F32.9 Major depressive disorder, single episode, unspecified; K59.09 Other constipation; J44.9 Chronic obstructive pulmonary disease, unspecified; Z20.822 Contact with and (suspected) exposure to COVID-19; I25.2 Old myocardial infarction; Z86.79 Personal history of other diseases of the circulatory system; Z79.899 Other long term (current) drug therapy; Z90.710 Acquired absence of both cervix and uterus; Z98.890 Other specified postprocedural states; X58.XXXA Exposure to other specified factors, initial encounter
CPT/HCPCS: 0240U; 36415; 80048; 80053; 85025; 87086; J2185; J3490

== ENCOUNTER 2020-11-26 21:53 | Emergency (ER) | payer MEDICARE, MEDICAID ==
[2020-11-26 23:02] LABS: #Basophils 0.1 thou/uL (0.0-0.2); #Monocytes 0.7 thou/uL (0.11-0.59); %Basophils 1.2 % (0.0-1.0); %Eosinophils 0.3 % (0.0-10.0); %Lymphocytes 21.5 % (21.0-51.0); %Monocytes 13.9 % (0.0-10.0); %Neutrophils 63.1 % (42.0-75.0); Hemoglobin 13.1 g/dL (12.0-16.0); Mean Corpuscular HGB CONC 32.4 g/dL (32.0-36.0); Mean Corpuscular Hemoglobin 30.7 pg (27.0-31.0); Mean Corpuscular Volume 94.7 fL (78.0-98.0); Mean Platelet Volume 6.5 fL (7.4-10.4); Platelet Count 215 thou/uL (130-400); RBC Distribution Width 13.8 % (11.5-14.5); Red Blood Cell (RBC) Count 4.28 mill/uL (4.20-5.40); White Blood Cell (WBC) Count 4.8 thou/uL (4.8-10.8)
[2020-11-26 23:18] LABS: ALT (SGPT) 13 U/L (8-55); AST (SGOT) 19 U/L (5-34); Albumin 3.5 g/dL (3.4-4.8); Alkaline Phosphatase 92 U/L (40-110); Anion Gap 14 mmol/L (10-20); BUN (Urea Nitrogen) 13 mg/dL (9.8-20.1); Bilirubin, Total 0.4 mg/dL (0.2-1.2); Calc. Creatinine Clearance 0 mL/min (70-130); Calcium 8.7 mg/dL (7.8-10.44); Carbon Dioxide 24 mmol/L (23-31); Chloride 104 mmol/L (98-107); Glucose 100 mg/dL (83-110); Potassium 3.7 mmol/L (3.5-5.1); Protein, Total 7.5 g/dL (5.8-8.1); Sodium 138 mmol/L (136-145)
[2020-11-27 00:17] LABS: Bilirubin Negative (Negative); Blood, Urine Small (Negative); Glucose, Urine (Dipstick) Negative (Negative); Ketone, Urine Negative (Negative); Leukocyte Moderate (Negative); Nitrite Positive (Negative); Protein, Urine (Dipstick) Negative (Neg-Trace)
[2020-11-27 00:19] LABS: Clarity Hazy (Clear)
[2020-11-27 00:23] LABS: Bacteria/HPF 1+ HPF (None Seen); RBC/HPF 0-3 HPF (0-3); Squamous Epithelial 0-3 HPF (0-3); WBC/HPF Greater Than 50 HPF (0-3)
[2020-11-27] MEDS ORDERED: Cipro 250 MG TAB ONE (01:22)
[2020-11-28 13:42] LABS: SARS-CoV-2 PCR by NAA DETECTED (NotDetected)
== END 2020-11-27 02:20 | disposition home or self-care (01) ==
LOC: NAV ERS 21:53
DX: U07.1 COVID-19 (principal); N39.0 Urinary tract infection, site not specified; K21.9 Gastro-esophageal reflux disease without esophagitis; E78.5 Hyperlipidemia, unspecified; I10 Essential (primary) hypertension; Z79.899 Other long term (current) drug therapy
CPT/HCPCS: 51701; 71045; 80053; 81003; 81015; 83605; 85025; U0003; U0005

== ENCOUNTER 2020-12-20 11:37 | Inpatient (IN) | payer MEDICARE, MEDICAID ==
[2020-12-20 12:48] LABS: #Basophils 0.1 thou/uL (0.0-0.2); #Lymphocytes 1.7 thou/uL (1.20-3.40); #Monocytes 0.8 thou/uL (0.11-0.59); #Neutrophils 4.2 thou/uL (1.40-6.50); %Basophils 1.1 % (0.0-1.0); %Eosinophils 0.7 % (0.0-10.0); %Lymphocytes 25.1 % (21.0-51.0); %Monocytes 11.3 % (0.0-10.0); %Neutrophils 61.8 % (42.0-75.0); Mean Corpuscular HGB CONC 31.4 g/dL (32.0-36.0); Mean Corpuscular Hemoglobin 30.4 pg (27.0-31.0); Mean Corpuscular Volume 96.6 fL (78.0-98.0); Mean Platelet Volume 7.2 fL (7.4-10.4); Platelet Count 267 thou/uL (130-400); RBC Distribution Width 14.2 % (11.5-14.5); Red Blood Cell (RBC) Count 4.62 mill/uL (4.20-5.40); White Blood Cell (WBC) Count 6.8 thou/uL (4.8-10.8)
[2020-12-20 13:06] LABS: ALT (SGPT) 12 U/L (8-55); AST (SGOT) 14 U/L (5-34); Albumin 3.4 g/dL (3.4-4.8); Alkaline Phosphatase 86 U/L (40-110); Anion Gap 12 mmol/L (10-20); BUN (Urea Nitrogen) 14 mg/dL (9.8-20.1); Bilirubin, Total 0.7 mg/dL (0.2-1.2); Calc. Creatinine Clearance 0 mL/min (70-130); Calcium 9.2 mg/dL (7.8-10.44); Carbon Dioxide 27 mmol/L (23-31); Chloride 109 mmol/L (98-107); Globulin 3.7 g/dL (2.4-3.5); Glucose 99 mg/dL (83-110); Potassium 3.8 mmol/L (3.5-5.1); Protein, Total 7.1 g/dL (5.8-8.1); Sodium 144 mmol/L (136-145)
[2020-12-20 13:37] LABS: Bilirubin Negative (Negative); Blood, Urine Trace (Negative); Glucose, Urine (Dipstick) Negative (Negative); Ketone, Urine Negative (Negative); Leukocyte Moderate (Negative); Nitrite Positive (Negative); Protein, Urine (Dipstick) 30 mg/dL (Neg-Trace); pH, Urine 7.5 (5.0-9.0)
[2020-12-20 13:42] LABS: Clarity Hazy (Clear)
[2020-12-20 13:52] LABS: Bacteria/HPF 4+ HPF (None Seen); RBC/HPF 0-3 HPF (0-3); Renal Epithelial 0-3 HPF (None Seen); Squamous Epithelial 0-3 HPF (0-3); WBC/HPF Greater Than 50 HPF (0-3)
[2020-12-20 15:33] VITALS: BMI 29.9
[2020-12-20] MEDS ORDERED: Meropenem 1 GM in Sodium Chloride 0.9% 100 ML IVPB SCH (17:00)
[2020-12-20] MEDS: Sodium Chloride 0.9% 1,000 ML IV SCH (17:33)
[2020-12-20] MEDS: Cholecalciferol 1,000 UNITS (25 MCG) TAB PO SCH (20:29)
[2020-12-20] MEDS: Ferrous Sulfate 325 MG TAB PO SCH (20:30)
[2020-12-20] MEDS: Simvastatin 10 MG TAB PO SCH (20:30)
[2020-12-20] MEDS: Floranex Packet PO SCH (20:30)
[2020-12-21] MEDS ORDERED: Meropenem 1 GM in Sodium Chloride 0.9% 100 ML IVPB SCH (01:00)
[2020-12-21] MEDS: Sodium Chloride 0.9% 1,000 ML IV SCH ×2 (04:20→14:49)
[2020-12-21] MEDS: Polyethylene Glycol 3350 17 GM Packet PO SCH (09:00)
[2020-12-21] MEDS ORDERED: Loperamide HCl 2 MG CAP PO PRN ×2 (13:00)
[2020-12-21] MEDS ORDERED: Bisacodyl 5 MG TAB PO PRN (13:00)
[2020-12-21] MEDS ORDERED: Ondansetron ODT 4 MG TAB PO PRN (13:00)
[2020-12-21] MEDS ORDERED: Senokot S 8.6-50 MG TAB PO PRN (13:00)
[2020-12-21] MEDS ORDERED: Sodium Chloride 0.65% Nasal 44 ML BOT EA NARE PRN (13:02)
[2020-12-21] MEDS ORDERED: Acetaminophen 650 MG Suppository PR PRN (13:02)
[2020-12-21] MEDS ORDERED: Acetaminophen 500 MG TAB PO PRN ×2 (13:02)
[2020-12-21] MEDS ORDERED: Eucerin (Mineral Oil/Petrolatum,White) 30 gm Jar TOP PRN (13:02)
[2020-12-21] MEDS ORDERED: Benzonatate 100 MG CAP PO PRN (13:02)
[2020-12-21] MEDS ORDERED: Loratadine 10 MG TAB PO PRN (13:02)
[2020-12-21] MEDS ORDERED: Cepastat Lozenges 1 LOZ PO PRN (13:02)
[2020-12-21] MEDS ORDERED: Artificial Tear Sol 15 ML BOT EA EYE PRN (13:02)
[2020-12-21] MEDS: Meropenem 1 GM in Sodium Chloride 0.9% 100 ML IVPB SCH ×2 (14:49→20:54)
[2020-12-21] MEDS ORDERED: Ondansetron ODT 4 MG TAB SL PRN (16:30)
[2020-12-21] MEDS: Nystatin Powder 15 GM BOT TOP SCH (20:53)
[2020-12-21] MEDS: Cholecalciferol 1,000 UNITS (25 MCG) TAB PO SCH (20:55)
[2020-12-21] MEDS: Floranex Packet PO SCH (20:55)
[2020-12-21] MEDS: Famotidine 20 MG TAB PO SCH (20:55)
[2020-12-21] MEDS: Ferrous Sulfate 325 MG TAB PO SCH (20:56)
[2020-12-21] MEDS: Simvastatin 10 MG TAB PO SCH (20:56)
[2020-12-22] MEDS: Sodium Chloride 0.9% 1,000 ML IV SCH ×3 (03:06→21:40)
[2020-12-22] MEDS: Meropenem 1 GM in Sodium Chloride 0.9% 100 ML IVPB SCH ×3 (06:01→21:44)
[2020-12-22 06:52] LABS: #Basophils 0.1 thou/uL (0.0-0.2); #Lymphocytes 1.5 thou/uL (1.20-3.40); #Monocytes 0.8 thou/uL (0.11-0.59); %Basophils 1.5 % (0.0-1.0); %Eosinophils 0.6 % (0.0-10.0); %Lymphocytes 23.8 % (21.0-51.0); %Monocytes 11.5 % (0.0-10.0); %Neutrophils 62.5 % (42.0-75.0); Hemoglobin 11.5 g/dL (12.0-16.0); Mean Corpuscular HGB CONC 31.3 g/dL (32.0-36.0); Mean Corpuscular Hemoglobin 30.2 pg (27.0-31.0); Mean Corpuscular Volume 96.4 fL (78.0-98.0); Mean Platelet Volume 7.4 fL (7.4-10.4); Platelet Count 212 thou/uL (130-400); RBC Distribution Width 13.9 % (11.5-14.5); Red Blood Cell (RBC) Count 3.82 mill/uL (4.20-5.40); White Blood Cell (WBC) Count 6.5 thou/uL (4.8-10.8)
[2020-12-22 07:06] LABS: Anion Gap 10 mmol/L (10-20); BUN (Urea Nitrogen) 13 mg/dL (9.8-20.1); Calc. Creatinine Clearance 110 mL/min (70-130); Calcium 7.9 mg/dL (7.8-10.44); Carbon Dioxide 25 mmol/L (23-31); Chloride 112 mmol/L (98-107); Glucose 105 mg/dL (83-110); Potassium 3.8 mmol/L (3.5-5.1); Sodium 143 mmol/L (136-145)
[2020-12-22] MEDS: Polyethylene Glycol 3350 17 GM Packet PO SCH (07:52)
[2020-12-22] MEDS: Famotidine 20 MG TAB PO SCH ×2 (07:52→21:41)
[2020-12-22] MEDS: Nystatin Powder 15 GM BOT TOP SCH ×2 (07:52→21:43)
[2020-12-22] MEDS: Cholecalciferol 1,000 UNITS (25 MCG) TAB PO SCH (21:41)
[2020-12-22] MEDS: Ferrous Sulfate 325 MG TAB PO SCH (21:42)
[2020-12-22] MEDS: Simvastatin 10 MG TAB PO SCH (21:42)
[2020-12-22] MEDS: Floranex Packet PO SCH (21:43)
[2020-12-23] MEDS: Sodium Chloride 0.9% 1,000 ML IV SCH (05:30)
[2020-12-23] MEDS: Meropenem 1 GM in Sodium Chloride 0.9% 100 ML IVPB SCH (05:35)
[2020-12-23 06:51] LABS: Anion Gap 9 mmol/L (10-20); BUN (Urea Nitrogen) 9 mg/dL (9.8-20.1); Calc. Creatinine Clearance 114 mL/min (70-130); Calcium 8.6 mg/dL (7.8-10.44); Carbon Dioxide 29 mmol/L (23-31); Chloride 107 mmol/L (98-107); Glucose 96 mg/dL (83-110); Potassium 3.8 mmol/L (3.5-5.1); Sodium 141 mmol/L (136-145)
[2020-12-23 06:57] LABS: Hemoglobin 12.1 g/dL (12.0-16.0); Mean Corpuscular Hemoglobin 30.2 pg (27.0-31.0); Mean Corpuscular Volume 94.3 fL (78.0-98.0); Mean Platelet Volume 6.8 fL (7.4-10.4); Platelet Count 226 thou/uL (130-400); RBC Distribution Width 13.7 % (11.5-14.5); Red Blood Cell (RBC) Count 4.01 mill/uL (4.20-5.40); White Blood Cell (WBC) Count 7.1 thou/uL (4.8-10.8)
[2020-12-23 06:58] LABS: Band 10 % (5-11); Lymphocytes 20 % (21-51); MDiff Complete? YES; Monocytes 6 % (0-10); Neutrophil 64 % (42-75); Platelet Morphology Comment Appears Adequate; RBC Morphology Normal
[2020-12-23 08:05] VITALS: BP 149/81; TEMP 97.7
[2020-12-23] MEDS: Polyethylene Glycol 3350 17 GM Packet PO SCH (08:28)
[2020-12-23] MEDS: Famotidine 20 MG TAB PO SCH (08:28)
[2020-12-23] MEDS: Nystatin Powder 15 GM BOT TOP SCH (08:29)
== END 2020-12-23 10:11 | disposition swing bed (61) | DRG 690 ==
LOC: NAV ERS 11:37 → UNDOADMIN 15:15 → NAV ACUTE 15:15
PROVIDERS: ADMIT Family Medicine; ATTEND Family Medicine
DX: N39.0 Urinary tract infection, site not specified (principal); Z16.24 Resistance to multiple antibiotics; I69.351 Hemiplegia and hemiparesis following cerebral infarction affecting right dominant side; I10 Essential (primary) hypertension; E66.9 Obesity, unspecified; J44.9 Chronic obstructive pulmonary disease, unspecified; B95.62 Methicillin resistant Staphylococcus aureus infection as the cause of diseases classified elsewhere; E78.5 Hyperlipidemia, unspecified; D50.9 Iron deficiency anemia, unspecified; K21.9 Gastro-esophageal reflux disease without esophagitis; K59.00 Constipation, unspecified; E78.00 Pure hypercholesterolemia, unspecified; F32.9 Major depressive disorder, single episode, unspecified; Z68.29 Body mass index [BMI] 29.0-29.9, adult; I69.311 Memory deficit following cerebral infarction; Z86.16 Personal history of COVID-19; Z79.82 Long term (current) use of aspirin; Z79.899 Other long term (current) drug therapy; Z90.710 Acquired absence of both cervix and uterus; I25.2 Old myocardial infarction
CPT/HCPCS: 36415; 36416; 51701; 80048; 80053; 81003; 81015; 85025; 87077; 87086; 87186; J2185; J3490; J7050

== ENCOUNTER 2020-12-23 10:13 | Inpatient (IN) | payer MEDICARE, MEDICAID ==
[2020-12-23] MEDS ORDERED: Ondansetron ODT 4 MG TAB PO PRN (11:29)
[2020-12-23] MEDS ORDERED: Meropenem 1 GM in Sodium Chloride 0.9% 100 ML IVPB SCH (11:45)
[2020-12-23] MEDS: Meropenem 1 GM in Sodium Chloride 0.9% 100 ML IVPB SCH ×2 (13:22→21:26)
[2020-12-23] MEDS: Sodium Chloride 0.9% 1,000 ML IV SCH (17:42)
[2020-12-23] MEDS: Nystatin Powder 15 GM BOT TOP SCH (20:29)
[2020-12-23] MEDS: Floranex 1 GM Packet PO SCH (20:29)
[2020-12-23] MEDS: Cholecalciferol 1,000 UNITS (25 MCG) TAB PO SCH (20:30)
[2020-12-23] MEDS: Ferrous Sulfate 325 MG TAB PO SCH (20:30)
[2020-12-23] MEDS ORDERED: Famotidine 20 MG TAB PO SCH (21:00)
[2020-12-24] MEDS: Meropenem 1 GM in Sodium Chloride 0.9% 100 ML IVPB SCH ×3 (05:10→22:16)
[2020-12-24] MEDS: Polyethylene Glycol 3350 17 GM Packet PO SCH (08:36)
[2020-12-24] MEDS: Sodium Chloride 0.9% 1,000 ML IV SCH (12:06)
[2020-12-24] MEDS: Nystatin Powder 15 GM BOT TOP SCH ×2 (12:07→20:30)
[2020-12-24] MEDS: Floranex 1 GM Packet PO SCH (20:29)
[2020-12-24] MEDS: Ferrous Sulfate 325 MG TAB PO SCH (20:30)
[2020-12-24] MEDS: Cholecalciferol 1,000 UNITS (25 MCG) TAB PO SCH (20:30)
[2020-12-25] MEDS: Meropenem 1 GM in Sodium Chloride 0.9% 100 ML IVPB SCH ×3 (05:25→21:03)
[2020-12-25] MEDS: Polyethylene Glycol 3350 17 GM Packet PO SCH (08:58)
[2020-12-25] MEDS: Nystatin Powder 15 GM BOT TOP SCH ×2 (08:58→20:48)
[2020-12-25] MEDS: Sodium Chloride 0.9% 1,000 ML IV SCH (10:10)
[2020-12-25] MEDS: Cholecalciferol 1,000 UNITS (25 MCG) TAB PO SCH (20:49)
[2020-12-25] MEDS: Ferrous Sulfate 325 MG TAB PO SCH (20:49)
[2020-12-25] MEDS: Floranex 1 GM Packet PO SCH (20:49)
[2020-12-26] MEDS: Sodium Chloride 0.9% 1,000 ML IV SCH ×3 (02:45→19:10)
[2020-12-26 05:17] VITALS: BMI 30.6
[2020-12-26] MEDS: Meropenem 1 GM in Sodium Chloride 0.9% 100 ML IVPB SCH ×3 (05:19→21:30)
[2020-12-26] MEDS: Polyethylene Glycol 3350 17 GM Packet PO SCH (09:06)
[2020-12-26] MEDS: Nystatin Powder 15 GM BOT TOP SCH ×2 (09:06→20:35)
[2020-12-26] MEDS: Cholecalciferol 1,000 UNITS (25 MCG) TAB PO SCH (20:35)
[2020-12-26] MEDS: Floranex 1 GM Packet PO SCH (20:35)
[2020-12-26] MEDS: Ferrous Sulfate 325 MG TAB PO SCH (20:35)
[2020-12-27] MEDS: Meropenem 1 GM in Sodium Chloride 0.9% 100 ML IVPB SCH ×3 (05:25→21:14)
[2020-12-27] MEDS: Polyethylene Glycol 3350 17 GM Packet PO SCH (10:05)
[2020-12-27] MEDS: Nystatin Powder 15 GM BOT TOP SCH ×2 (10:10→21:14)
[2020-12-27] MEDS: Sodium Chloride 0.9% 1,000 ML IV SCH ×2 (13:47→21:13)
[2020-12-27] MEDS: Floranex 1 GM Packet PO SCH (21:13)
[2020-12-27] MEDS: Ferrous Sulfate 325 MG TAB PO SCH (21:13)
[2020-12-27] MEDS: Cholecalciferol 1,000 UNITS (25 MCG) TAB PO SCH (21:13)
[2020-12-28] MEDS: Sodium Chloride 0.9% 1,000 ML IV SCH ×5 (05:37→20:26)
[2020-12-28] MEDS: Meropenem 1 GM in Sodium Chloride 0.9% 100 ML IVPB SCH ×3 (05:45→21:28)
[2020-12-28] MEDS: Nystatin Powder 15 GM BOT TOP SCH ×2 (08:30→20:41)
[2020-12-28] MEDS: Polyethylene Glycol 3350 17 GM Packet PO SCH (08:31)
[2020-12-28] MEDS ORDERED: Polyethylene Glycol 3350 17 GM Packet PO PRN (12:00)
[2020-12-28] MEDS: Floranex 1 GM Packet PO SCH (20:39)
[2020-12-28] MEDS: Cholecalciferol 1,000 UNITS (25 MCG) TAB PO SCH (20:39)
[2020-12-28] MEDS: Ferrous Sulfate 325 MG TAB PO SCH (20:39)
[2020-12-28] MEDS: Simvastatin 10 MG TAB PO SCH (20:40)
[2020-12-29] MEDS: Meropenem 1 GM in Sodium Chloride 0.9% 100 ML IVPB SCH ×3 (05:12→21:19)
[2020-12-29 06:28] LABS: Anion Gap 10 mmol/L (10-20); BUN (Urea Nitrogen) 10 mg/dL (9.8-20.1); Calc. Creatinine Clearance 124 mL/min (70-130); Calcium 8.2 mg/dL (7.8-10.44); Carbon Dioxide 24 mmol/L (23-31); Chloride 109 mmol/L (98-107); Glucose 91 mg/dL (83-110); Potassium 3.4 mmol/L (3.5-5.1); Sodium 140 mmol/L (136-145)
[2020-12-29 06:33] LABS: #Basophils 0.1 thou/uL (0.0-0.2); #Eosinphils 0.1 thou/uL (0.0-0.7); #Monocytes 0.5 thou/uL (0.11-0.59); #Neutrophils 3.9 thou/uL (1.40-6.50); %Basophils 1.3 % (0.0-1.0); %Eosinophils 1.3 % (0.0-10.0); %Lymphocytes 30.1 % (21.0-51.0); %Monocytes 7.9 % (0.0-10.0); %Neutrophils 59.4 % (42.0-75.0); Hemoglobin 11.5 g/dL (12.0-16.0); Mean Corpuscular HGB CONC 31.3 g/dL (32.0-36.0); Mean Corpuscular Hemoglobin 30.3 pg (27.0-31.0); Mean Corpuscular Volume 96.8 fL (78.0-98.0); Mean Platelet Volume 7.9 fL (7.4-10.4); Platelet Count 229 thou/uL (130-400); RBC Distribution Width 14.4 % (11.5-14.5); White Blood Cell (WBC) Count 6.6 thou/uL (4.8-10.8)
[2020-12-29] MEDS: Nystatin Powder 15 GM BOT TOP SCH ×2 (08:29→21:19)
[2020-12-29] MEDS: Cholecalciferol 1,000 UNITS (25 MCG) TAB PO SCH (21:18)
[2020-12-29] MEDS: Floranex 1 GM Packet PO SCH (21:18)
[2020-12-29] MEDS: Ferrous Sulfate 325 MG TAB PO SCH (21:18)
[2020-12-29] MEDS: Simvastatin 10 MG TAB PO SCH (21:18)
[2020-12-30] MEDS: Meropenem 1 GM in Sodium Chloride 0.9% 100 ML IVPB SCH ×3 (06:06→21:23)
[2020-12-30] MEDS: Nystatin Powder 15 GM BOT TOP SCH ×2 (09:20→21:25)
[2020-12-30] MEDS: Floranex 1 GM Packet PO SCH (21:24)
[2020-12-30] MEDS: Simvastatin 10 MG TAB PO SCH (21:24)
[2020-12-30] MEDS: Cholecalciferol 1,000 UNITS (25 MCG) TAB PO SCH (21:25)
[2020-12-30] MEDS: Ferrous Sulfate 325 MG TAB PO SCH (21:25)
[2020-12-31] MEDS: Meropenem 1 GM in Sodium Chloride 0.9% 100 ML IVPB SCH (05:58)
[2020-12-31 09:01] VITALS: BP 154/82; TEMP 98.6
[2020-12-31] MEDS: Nystatin Powder 15 GM BOT TOP SCH (09:43)
== END 2020-12-31 13:40 | disposition home or self-care (01) | DRG 690 ==
LOC: NAV ACUTE 10:13
PROVIDERS: ADMIT Family Medicine; ATTEND Family Medicine
DX: N39.0 Urinary tract infection, site not specified (principal); Z16.24 Resistance to multiple antibiotics; I69.351 Hemiplegia and hemiparesis following cerebral infarction affecting right dominant side; I10 Essential (primary) hypertension; E78.5 Hyperlipidemia, unspecified; F41.9 Anxiety disorder, unspecified; F32.A Depression, unspecified; K59.09 Other constipation; E66.9 Obesity, unspecified; Z68.30 Body mass index [BMI] 30.0-30.9, adult; I25.2 Old myocardial infarction; Z90.710 Acquired absence of both cervix and uterus
CPT/HCPCS: 36415; 80048; 85025; J2185; J3490; J7050

== ENCOUNTER 2021-11-02 15:46 | Inpatient (IN) | payer MEDICARE, MEDICAID ==
[2021-11-02] MEDS ORDERED: Polyethylene Glycol 3350 17 GM Packet PO PRN (19:53)
[2021-11-02] MEDS ORDERED: Sodium Chloride 0.65% Nasal 44 ML BOT EA NARE PRN (20:02)
[2021-11-02] MEDS ORDERED: Benzonatate 100 MG CAP PO PRN (20:02)
[2021-11-02] MEDS ORDERED: Cepastat Lozenges 1 LOZ PO PRN (20:02)
[2021-11-02] MEDS ORDERED: Promethazine HCl 25 MG SUPP PR PRN (20:02)
[2021-11-02] MEDS ORDERED: Calcium Carbonate 500 MG ChewTAB PO PRN (20:02)
[2021-11-02] MEDS ORDERED: Guaifenesin DM 100-10/5 ML UDCUP PO PRN (20:02)
[2021-11-02] MEDS ORDERED: Acetaminophen 650 MG Suppository PR PRN (20:02)
[2021-11-02] MEDS ORDERED: Artificial Tear Sol 15 ML BOT EA EYE PRN (20:02)
[2021-11-02] MEDS ORDERED: Ondansetron ODT 4 MG TAB PO PRN (20:02)
[2021-11-02] MEDS ORDERED: cloNIDine 0.1 MG TAB PO PRN (20:02)
[2021-11-02] MEDS: Meropenem 1 GM in Sodium Chloride 0.9% 100 ML IVPB SCH (21:42)
[2021-11-02] MEDS: Cholecalciferol 1,000 UNITS (25 MCG) TAB PO SCH (21:42)
[2021-11-02] MEDS: Ferrous Sulfate 325 MG TAB PO SCH (21:42)
[2021-11-02] MEDS: Floranex 1 GM Packet PO SCH (21:45)
[2021-11-02] MEDS ORDERED: Meropenem 1 GM VIAL IVPB SCH ×2 (22:00)
[2021-11-03] MEDS: Meropenem 1 GM in Sodium Chloride 0.9% 100 ML IVPB SCH ×3 (06:05→22:24)
[2021-11-03] MEDS: Ascorbic Acid 500 mg Chewable Tablet PO SCH (09:01)
[2021-11-03 09:44] LABS: #Basophils 0.1 thou/uL (0.0-0.2); #Eosinphils 0.2 thou/uL (0.0-0.7); #Monocytes 0.5 thou/uL (0.11-0.59); #Neutrophils 6.1 thou/uL (1.40-6.50); %Lymphocytes 12.4 % (21.0-51.0); %Monocytes 6.1 % (0.0-10.0); %Neutrophils 78.5 % (42.0-75.0); Hemoglobin 10.9 g/dL (12.0-16.0); Mean Corpuscular Hemoglobin 30.5 pg (27.0-31.0); Mean Corpuscular Volume 98.5 fL (78.0-98.0); Mean Platelet Volume 6.2 fL (7.4-10.4); Platelet Count 270 thou/uL (130-400); RBC Distribution Width 13.7 % (11.5-14.5); Red Blood Cell (RBC) Count 3.56 mill/uL (4.20-5.40); White Blood Cell (WBC) Count 7.8 thou/uL (4.8-10.8)
[2021-11-03 09:56] LABS: Anion Gap 13 mmol/L (10-20); BUN (Urea Nitrogen) 10 mg/dL (9.8-20.1); Calc. Creatinine Clearance 121 mL/min (70-130); Calcium 8.7 mg/dL (7.8-10.44); Carbon Dioxide 29 mmol/L (23-31); Chloride 104 mmol/L (98-107); Estimated GFR 95; Glucose 118 mg/dL (83-110); Potassium 3.8 mmol/L (3.5-5.1); Sodium 142 mmol/L (136-145)
[2021-11-03] MEDS: Floranex 1 GM Packet PO SCH (20:31)
[2021-11-03] MEDS: Cholecalciferol 1,000 UNITS (25 MCG) TAB PO SCH (20:31)
[2021-11-03] MEDS: Ferrous Sulfate 325 MG TAB PO SCH (20:32)
[2021-11-03] MEDS ORDERED: Sodium Chloride For Inhalation 0.9% 3 ML NEB ONE (22:10)
[2021-11-03] MEDS ORDERED: Sodium Chloride 0.9% 20 ML ONE (22:11)
[2021-11-04] MEDS: Acetaminophen 325 MG TAB PO PRN ×2 (00:30→19:31)
[2021-11-04] MEDS: Meropenem 1 GM in Sodium Chloride 0.9% 100 ML IVPB SCH ×3 (05:24→21:26)
[2021-11-04] MEDS: Ascorbic Acid 500 mg Chewable Tablet PO SCH (09:09)
[2021-11-04] MEDS ORDERED: Ondansetron ODT 4 MG TAB SL PRN (10:45)
[2021-11-04] MEDS ORDERED: Sodium Chloride 0.9% 10 ML ONE (20:14)
[2021-11-04] MEDS: Ferrous Sulfate 325 MG TAB PO SCH (20:20)
[2021-11-04] MEDS: Haloperidol 5 MG TAB PO SCH (20:20)
[2021-11-04] MEDS: Cholecalciferol 1,000 UNITS (25 MCG) TAB PO SCH (20:20)
[2021-11-04] MEDS: Floranex 1 GM Packet PO SCH (20:20)
[2021-11-05] MEDS ORDERED: Sodium Chloride 0.9% 10 ML ONE (05:23)
[2021-11-05] MEDS: Meropenem 1 GM in Sodium Chloride 0.9% 100 ML IVPB SCH ×3 (05:26→20:59)
[2021-11-05] MEDS: Ascorbic Acid 500 mg Chewable Tablet PO SCH (08:10)
[2021-11-05] MEDS: Haloperidol 5 MG TAB PO SCH ×2 (08:10→20:59)
[2021-11-05] MEDS: Acetaminophen 325 MG TAB PO PRN ×2 (14:52→19:31)
[2021-11-05] MEDS: Floranex 1 GM Packet PO SCH (20:58)
[2021-11-05] MEDS: Ferrous Sulfate 325 MG TAB PO SCH (20:58)
[2021-11-05] MEDS: Cholecalciferol 1,000 UNITS (25 MCG) TAB PO SCH (20:59)
[2021-11-05] MEDS: Lidocaine 5% Patch TD SCH (20:59)
[2021-11-05] MEDS ORDERED: Lidocaine 5% Patch TD SCH (21:00)
[2021-11-06 05:50] LABS: #Basophils 0.1 thou/uL (0.0-0.2); #Eosinphils 0.1 thou/uL (0.0-0.7); #Lymphocytes 1.6 thou/uL (1.20-3.40); #Monocytes 0.7 thou/uL (0.11-0.59); #Neutrophils 5.2 thou/uL (1.40-6.50); %Basophils 1.2 % (0.0-1.0); %Monocytes 9.6 % (0.0-10.0); %Neutrophils 67.2 % (42.0-75.0); Hemoglobin 10.2 g/dL (12.0-16.0); Mean Corpuscular Hemoglobin 30.4 pg (27.0-31.0); Mean Platelet Volume 6.2 fL (7.4-10.4); Platelet Count 319 thou/uL (130-400); RBC Distribution Width 13.5 % (11.5-14.5); Red Blood Cell (RBC) Count 3.35 mill/uL (4.20-5.40); White Blood Cell (WBC) Count 7.7 thou/uL (4.8-10.8)
[2021-11-06] MEDS: Meropenem 1 GM in Sodium Chloride 0.9% 100 ML IVPB SCH ×3 (05:52→21:29)
[2021-11-06 06:00] LABS: Anion Gap 13 mmol/L (10-20); BUN (Urea Nitrogen) 11 mg/dL (9.8-20.1); Calc. Creatinine Clearance 119 mL/min (70-130); Calcium 8.6 mg/dL (7.8-10.44); Carbon Dioxide 29 mmol/L (23-31); Chloride 107 mmol/L (98-107); Estimated GFR 95; Glucose 95 mg/dL (83-110); Potassium 3.6 mmol/L (3.5-5.1); Sodium 145 mmol/L (136-145)
[2021-11-06] MEDS: Acetaminophen 325 MG TAB PO PRN ×2 (06:02→11:30)
[2021-11-06] MEDS: Haloperidol 5 MG TAB PO SCH ×2 (08:27→20:32)
[2021-11-06] MEDS: Ascorbic Acid 500 mg Chewable Tablet PO SCH (08:27)
[2021-11-06] MEDS ORDERED: Transdermal Patch Removal TOP SCH (09:00)
[2021-11-06] MEDS: Transdermal Patch Removal TOP SCH (09:31)
[2021-11-06] MEDS ORDERED: Sodium Chloride 0.9% 10 ML ONE (20:12)
[2021-11-06] MEDS: Cholecalciferol 1,000 UNITS (25 MCG) TAB PO SCH (20:32)
[2021-11-06] MEDS: Floranex 1 GM Packet PO SCH (20:32)
[2021-11-06] MEDS: Ferrous Sulfate 325 MG TAB PO SCH (20:32)
[2021-11-06] MEDS: Lidocaine 5% Patch TD SCH (20:33)
[2021-11-07] MEDS: Meropenem 1 GM in Sodium Chloride 0.9% 100 ML IVPB SCH ×3 (05:29→21:35)
[2021-11-07] MEDS ORDERED: Loperamide HCl 2 MG CAP PO PRN (07:22)
[2021-11-07] MEDS ORDERED: Loperamide HCl 2 MG CAP PO SCH (07:30)
[2021-11-07] MEDS: Haloperidol 5 MG TAB PO SCH ×2 (07:49→21:36)
[2021-11-07] MEDS: Ascorbic Acid 500 mg Chewable Tablet PO SCH (07:49)
[2021-11-07] MEDS: Transdermal Patch Removal TOP SCH (07:51)
[2021-11-07] MEDS: Acetaminophen 325 MG TAB PO PRN (09:47)
[2021-11-07] MEDS: Ferrous Sulfate 325 MG TAB PO SCH (21:35)
[2021-11-07] MEDS: Cholecalciferol 1,000 UNITS (25 MCG) TAB PO SCH (21:35)
[2021-11-07] MEDS: Floranex 1 GM Packet PO SCH (21:36)
[2021-11-07] MEDS: Lidocaine 5% Patch TD SCH (21:38)
[2021-11-08] MEDS: Meropenem 1 GM in Sodium Chloride 0.9% 100 ML IVPB SCH ×3 (05:49→20:53)
[2021-11-08] MEDS: Haloperidol 5 MG TAB PO SCH ×2 (08:22→20:50)
[2021-11-08] MEDS: Ascorbic Acid 500 mg Chewable Tablet PO SCH (08:22)
[2021-11-08] MEDS: Transdermal Patch Removal TOP SCH (08:25)
[2021-11-08] MEDS: Lidocaine 5% Patch TD SCH (20:48)
[2021-11-08] MEDS: Ferrous Sulfate 325 MG TAB PO SCH (20:49)
[2021-11-08] MEDS: Cholecalciferol 1,000 UNITS (25 MCG) TAB PO SCH (20:49)
[2021-11-08] MEDS: Floranex 1 GM Packet PO SCH (20:49)
[2021-11-09] MEDS: Meropenem 1 GM in Sodium Chloride 0.9% 100 ML IVPB SCH ×3 (05:55→21:07)
[2021-11-09 06:02] LABS: #Basophils 0.1 thou/uL (0.0-0.2); #Eosinphils 0.1 thou/uL (0.0-0.7); #Lymphocytes 1.7 thou/uL (1.20-3.40); #Monocytes 0.7 thou/uL (0.11-0.59); #Neutrophils 4.4 thou/uL (1.40-6.50); %Basophils 1.5 % (0.0-1.0); %Eosinophils 1.4 % (0.0-10.0); %Lymphocytes 24.5 % (21.0-51.0); %Neutrophils 62.6 % (42.0-75.0); Hemoglobin 10.2 g/dL (12.0-16.0); Mean Corpuscular HGB CONC 31.6 g/dL (32.0-36.0); Mean Corpuscular Hemoglobin 30.6 pg (27.0-31.0); Mean Corpuscular Volume 96.8 fL (78.0-98.0); Mean Platelet Volume 5.6 fL (7.4-10.4); Platelet Count 345 thou/uL (130-400); RBC Distribution Width 13.7 % (11.5-14.5); Red Blood Cell (RBC) Count 3.35 mill/uL (4.20-5.40)
[2021-11-09 06:19] LABS: Anion Gap 14 mmol/L (10-20); BUN (Urea Nitrogen) 12 mg/dL (9.8-20.1); Calc. Creatinine Clearance 115 mL/min (70-130); Calcium 8.6 mg/dL (7.8-10.44); Carbon Dioxide 28 mmol/L (23-31); Chloride 106 mmol/L (98-107); Estimated GFR 94; Glucose 95 mg/dL (83-110); Sodium 144 mmol/L (136-145)
[2021-11-09] MEDS: Ascorbic Acid 500 mg Chewable Tablet PO SCH (07:36)
[2021-11-09] MEDS: Haloperidol 5 MG TAB PO SCH ×2 (07:36→21:07)
[2021-11-09] MEDS: Transdermal Patch Removal TOP SCH (08:28)
[2021-11-09 20:34] LABS: Bilirubin Negative (Negative); Blood, Urine Negative (Negative); Clarity Clear (Clear); Glucose, Urine (Dipstick) Negative (Negative); Ketone, Urine 15 mg/dL (Negative); Leukocyte Negative (Negative); Nitrite Negative (Negative); Protein, Urine (Dipstick) Trace mg/dL (Neg-Trace)
[2021-11-09] MEDS: Lidocaine 5% Patch TD SCH (21:06)
[2021-11-09] MEDS: Floranex 1 GM Packet PO SCH (21:07)
[2021-11-09] MEDS: Cholecalciferol 1,000 UNITS (25 MCG) TAB PO SCH (21:07)
[2021-11-09] MEDS: Ferrous Sulfate 325 MG TAB PO SCH (21:07)
[2021-11-10] MEDS: Meropenem 1 GM in Sodium Chloride 0.9% 100 ML IVPB SCH ×3 (05:25→21:16)
[2021-11-10 06:07] LABS: #Basophils 0.1 thou/uL (0.0-0.2); #Eosinphils 0.1 thou/uL (0.0-0.7); #Lymphocytes 1.6 thou/uL (1.20-3.40); #Monocytes 0.8 thou/uL (0.11-0.59); #Neutrophils 5.3 thou/uL (1.40-6.50); %Basophils 0.9 % (0.0-1.0); %Eosinophils 1.4 % (0.0-10.0); %Lymphocytes 20.2 % (21.0-51.0); %Neutrophils 67.6 % (42.0-75.0); Mean Corpuscular HGB CONC 32.4 g/dL (32.0-36.0); Mean Corpuscular Volume 95.5 fL (78.0-98.0); Mean Platelet Volume 6.1 fL (7.4-10.4); Platelet Count 368 thou/uL (130-400); RBC Distribution Width 13.8 % (11.5-14.5); Red Blood Cell (RBC) Count 3.88 mill/uL (4.20-5.40); White Blood Cell (WBC) Count 7.8 thou/uL (4.8-10.8)
[2021-11-10] MEDS: Haloperidol 5 MG TAB PO SCH ×2 (08:24→21:12)
[2021-11-10] MEDS: Ascorbic Acid 500 mg Chewable Tablet PO SCH (08:25)
[2021-11-10] MEDS: Transdermal Patch Removal TOP SCH (08:25)
[2021-11-10] MEDS: Floranex 1 GM Packet PO SCH (21:11)
[2021-11-10] MEDS: Cholecalciferol 1,000 UNITS (25 MCG) TAB PO SCH (21:12)
[2021-11-10] MEDS: Lidocaine 5% Patch TD SCH (21:12)
[2021-11-10] MEDS: Ferrous Sulfate 325 MG TAB PO SCH (21:12)
[2021-11-11] MEDS: Meropenem 1 GM in Sodium Chloride 0.9% 100 ML IVPB SCH ×3 (05:23→21:49)
[2021-11-11] MEDS: Ascorbic Acid 500 mg Chewable Tablet PO SCH (07:50)
[2021-11-11] MEDS: Haloperidol 5 MG TAB PO SCH ×2 (07:50→21:48)
[2021-11-11] MEDS: Transdermal Patch Removal TOP SCH (07:50)
[2021-11-11] MEDS: Lidocaine 5% Patch TD SCH (21:47)
[2021-11-11] MEDS: Senokot S 8.6-50 MG TAB PO PRN (21:48)
[2021-11-11] MEDS: Ferrous Sulfate 325 MG TAB PO SCH (21:48)
[2021-11-11] MEDS: Floranex 1 GM Packet PO SCH (21:48)
[2021-11-11] MEDS: Cholecalciferol 1,000 UNITS (25 MCG) TAB PO SCH (21:48)
[2021-11-12] MEDS: Meropenem 1 GM in Sodium Chloride 0.9% 100 ML IVPB SCH ×3 (05:30→21:37)
[2021-11-12] MEDS: Ascorbic Acid 500 mg Chewable Tablet PO SCH (08:39)
[2021-11-12] MEDS: Transdermal Patch Removal TOP SCH (08:39)
[2021-11-12] MEDS: Haloperidol 5 MG TAB PO SCH ×2 (08:39→21:37)
[2021-11-12 09:13] LABS: #Basophils 0.1 thou/uL (0.0-0.2); #Eosinphils 0.1 thou/uL (0.0-0.7); #Lymphocytes 1.3 thou/uL (1.20-3.40); #Monocytes 0.7 thou/uL (0.11-0.59); #Neutrophils 4.8 thou/uL (1.40-6.50); %Basophils 0.8 % (0.0-1.0); %Eosinophils 1.4 % (0.0-10.0); %Lymphocytes 18.7 % (21.0-51.0); %Neutrophils 69.1 % (42.0-75.0); Hemoglobin 11.1 g/dL (12.0-16.0); Mean Corpuscular HGB CONC 30.7 g/dL (32.0-36.0); Mean Corpuscular Hemoglobin 29.8 pg (27.0-31.0); Mean Corpuscular Volume 97.3 fL (78.0-98.0); Mean Platelet Volume 5.9 fL (7.4-10.4); Platelet Count 405 thou/uL (130-400); RBC Distribution Width 13.8 % (11.5-14.5); Red Blood Cell (RBC) Count 3.73 mill/uL (4.20-5.40)
[2021-11-12 09:22] LABS: Anion Gap 14 mmol/L (10-20); BUN (Urea Nitrogen) 14 mg/dL (9.8-20.1); Calc. Creatinine Clearance 119 mL/min (70-130); Calcium 8.6 mg/dL (7.8-10.44); Carbon Dioxide 27 mmol/L (23-31); Chloride 105 mmol/L (98-107); Estimated GFR 95; Glucose 102 mg/dL (83-110); Potassium 3.9 mmol/L (3.5-5.1); Sodium 142 mmol/L (136-145)
[2021-11-12] MEDS: Bisacodyl 5 MG TAB PO PRN (13:19)
[2021-11-12] MEDS: Floranex 1 GM Packet PO SCH (21:36)
[2021-11-12] MEDS: Lidocaine 5% Patch TD SCH (21:36)
[2021-11-12] MEDS: Ferrous Sulfate 325 MG TAB PO SCH (21:37)
[2021-11-12] MEDS: Cholecalciferol 1,000 UNITS (25 MCG) TAB PO SCH (21:37)
[2021-11-13 04:47] VITALS: BMI 29.0
[2021-11-13] MEDS: Meropenem 1 GM in Sodium Chloride 0.9% 100 ML IVPB SCH ×3 (05:31→21:17)
[2021-11-13] MEDS: Ascorbic Acid 500 mg Chewable Tablet PO SCH (08:53)
[2021-11-13] MEDS: Transdermal Patch Removal TOP SCH (08:53)
[2021-11-13] MEDS: Lidocaine 5% Patch TD SCH (21:16)
[2021-11-13] MEDS: Floranex 1 GM Packet PO SCH (21:16)
[2021-11-13] MEDS: Ferrous Sulfate 325 MG TAB PO SCH (21:16)
[2021-11-13] MEDS: Haloperidol 5 MG TAB PO SCH (21:17)
[2021-11-13] MEDS: Cholecalciferol 1,000 UNITS (25 MCG) TAB PO SCH (21:17)
[2021-11-14] MEDS: Meropenem 1 GM in Sodium Chloride 0.9% 100 ML IVPB SCH ×3 (05:10→21:02)
[2021-11-14] MEDS: Ascorbic Acid 500 mg Chewable Tablet PO SCH (08:13)
[2021-11-14] MEDS: Transdermal Patch Removal TOP SCH (08:14)
[2021-11-14] MEDS: Acetaminophen 325 MG TAB PO PRN (19:27)
[2021-11-14] MEDS: Lidocaine 5% Patch TD SCH (21:08)
[2021-11-14] MEDS: Ferrous Sulfate 325 MG TAB PO SCH (21:17)
[2021-11-14] MEDS: Haloperidol 5 MG TAB PO SCH (21:17)
[2021-11-14] MEDS: Cholecalciferol 1,000 UNITS (25 MCG) TAB PO SCH (21:18)
[2021-11-14] MEDS: Floranex 1 GM Packet PO SCH (21:18)
[2021-11-14] MEDS: Bisacodyl 5 MG TAB PO PRN (21:27)
[2021-11-15] MEDS: Meropenem 1 GM in Sodium Chloride 0.9% 100 ML IVPB SCH ×3 (05:10→21:37)
[2021-11-15 06:12] LABS: Anion Gap 14 mmol/L (10-20); BUN (Urea Nitrogen) 11 mg/dL (9.8-20.1); Calc. Creatinine Clearance 116 mL/min (70-130); Calcium 8.8 mg/dL (7.8-10.44); Carbon Dioxide 26 mmol/L (23-31); Chloride 103 mmol/L (98-107); Estimated GFR 95; Glucose 110 mg/dL (83-110); Potassium 3.9 mmol/L (3.5-5.1); Sodium 139 mmol/L (136-145)
[2021-11-15 06:16] LABS: #Basophils 0.1 thou/uL (0.0-0.2); #Eosinphils 0.1 thou/uL (0.0-0.7); #Lymphocytes 1.4 thou/uL (1.20-3.40); #Monocytes 0.8 thou/uL (0.11-0.59); #Neutrophils 5.2 thou/uL (1.40-6.50); %Basophils 0.9 % (0.0-1.0); %Lymphocytes 18.1 % (21.0-51.0); %Monocytes 10.4 % (0.0-10.0); %Neutrophils 69.6 % (42.0-75.0); Hemoglobin 11.5 g/dL (12.0-16.0); Mean Corpuscular HGB CONC 31.7 g/dL (32.0-36.0); Mean Corpuscular Hemoglobin 30.6 pg (27.0-31.0); Mean Corpuscular Volume 96.4 fL (78.0-98.0); Mean Platelet Volume 6.1 fL (7.4-10.4); Platelet Count 425 thou/uL (130-400); RBC Distribution Width 13.8 % (11.5-14.5); Red Blood Cell (RBC) Count 3.75 mill/uL (4.20-5.40); White Blood Cell (WBC) Count 7.5 thou/uL (4.8-10.8)
[2021-11-15] MEDS: Ascorbic Acid 500 mg Chewable Tablet PO SCH (08:18)
[2021-11-15] MEDS: Senokot S 8.6-50 MG TAB PO PRN (08:18)
[2021-11-15] MEDS: Transdermal Patch Removal TOP SCH (08:19)
[2021-11-15] MEDS: Floranex 1 GM Packet PO SCH (20:26)
[2021-11-15] MEDS: Cholecalciferol 1,000 UNITS (25 MCG) TAB PO SCH (20:26)
[2021-11-15] MEDS: Haloperidol 5 MG TAB PO SCH (20:27)
[2021-11-15] MEDS: Ferrous Sulfate 325 MG TAB PO SCH (20:27)
[2021-11-15] MEDS: Lidocaine 5% Patch TD SCH (20:28)
[2021-11-16] MEDS: Meropenem 1 GM in Sodium Chloride 0.9% 100 ML IVPB SCH ×3 (05:40→20:42)
[2021-11-16] MEDS: Bisacodyl 10 MG SUPP PR PRN (06:22)
[2021-11-16] MEDS: Ascorbic Acid 500 mg Chewable Tablet PO SCH (09:19)
[2021-11-16] MEDS: Transdermal Patch Removal TOP SCH (09:20)
[2021-11-16] MEDS: Floranex 1 GM Packet PO SCH (20:28)
[2021-11-16] MEDS: Lidocaine 5% Patch TD SCH (20:42)
[2021-11-16] MEDS: Ferrous Sulfate 325 MG TAB PO SCH (20:43)
[2021-11-16] MEDS: Cholecalciferol 1,000 UNITS (25 MCG) TAB PO SCH (20:43)
[2021-11-16] MEDS: Haloperidol 5 MG TAB PO SCH (20:43)
[2021-11-17] MEDS: Meropenem 1 GM in Sodium Chloride 0.9% 100 ML IVPB SCH ×3 (05:57→20:59)
[2021-11-17] MEDS: Transdermal Patch Removal TOP SCH (08:25)
[2021-11-17] MEDS: Ascorbic Acid 500 mg Chewable Tablet PO SCH (09:09)
[2021-11-17] MEDS: Haloperidol 5 MG TAB PO SCH (20:58)
[2021-11-17] MEDS: Nystatin Powder 15 GM BOT TOP SCH (20:58)
[2021-11-17] MEDS: Cholecalciferol 1,000 UNITS (25 MCG) TAB PO SCH (20:58)
[2021-11-17] MEDS: Floranex 1 GM Packet PO SCH (20:58)
[2021-11-17] MEDS: Ferrous Sulfate 325 MG TAB PO SCH (20:58)
[2021-11-17] MEDS: Lidocaine 5% Patch TD SCH (20:59)
[2021-11-18] MEDS: Meropenem 1 GM in Sodium Chloride 0.9% 100 ML IVPB SCH ×3 (05:07→21:00)
[2021-11-18 06:07] LABS: #Basophils 0.1 thou/uL (0.0-0.2); #Eosinphils 0.1 thou/uL (0.0-0.7); #Lymphocytes 1.4 thou/uL (1.20-3.40); #Monocytes 0.6 thou/uL (0.11-0.59); #Neutrophils 4.5 thou/uL (1.40-6.50); %Basophils 1.1 % (0.0-1.0); %Eosinophils 1.6 % (0.0-10.0); %Lymphocytes 20.9 % (21.0-51.0); %Monocytes 9.6 % (0.0-10.0); %Neutrophils 66.8 % (42.0-75.0); Hemoglobin 11.4 g/dL (12.0-16.0); Mean Corpuscular HGB CONC 31.4 g/dL (32.0-36.0); Mean Corpuscular Hemoglobin 30.5 pg (27.0-31.0); Mean Platelet Volume 6.2 fL (7.4-10.4); Platelet Count 337 thou/uL (130-400); Red Blood Cell (RBC) Count 3.75 mill/uL (4.20-5.40); White Blood Cell (WBC) Count 6.7 thou/uL (4.8-10.8)
[2021-11-18 06:21] LABS: Anion Gap 15 mmol/L (10-20); BUN (Urea Nitrogen) 10 mg/dL (9.8-20.1); Calc. Creatinine Clearance 109 mL/min (70-130); Calcium 8.7 mg/dL (7.8-10.44); Carbon Dioxide 26 mmol/L (23-31); Chloride 105 mmol/L (98-107); Estimated GFR 94; Glucose 96 mg/dL (83-110); Potassium 3.8 mmol/L (3.5-5.1); Sodium 142 mmol/L (136-145)
[2021-11-18] MEDS: Nystatin Powder 15 GM BOT TOP SCH ×2 (07:57→21:00)
[2021-11-18] MEDS: Ascorbic Acid 500 mg Chewable Tablet PO SCH (07:57)
[2021-11-18] MEDS: Transdermal Patch Removal TOP SCH (07:57)
[2021-11-18] MEDS: Floranex 1 GM Packet PO SCH (20:42)
[2021-11-18] MEDS: Ferrous Sulfate 325 MG TAB PO SCH (20:42)
[2021-11-18] MEDS: Cholecalciferol 1,000 UNITS (25 MCG) TAB PO SCH (20:42)
[2021-11-18] MEDS: Haloperidol 5 MG TAB PO SCH (20:42)
[2021-11-18] MEDS: Lidocaine 5% Patch TD SCH (20:43)
[2021-11-19] MEDS: Meropenem 1 GM in Sodium Chloride 0.9% 100 ML IVPB SCH ×3 (05:19→20:59)
[2021-11-19] MEDS: Ascorbic Acid 500 mg Chewable Tablet PO SCH (08:17)
[2021-11-19] MEDS: Nystatin Powder 15 GM BOT TOP SCH ×2 (08:17→20:59)
[2021-11-19] MEDS: Transdermal Patch Removal TOP SCH (08:18)
[2021-11-19] MEDS: Haloperidol 5 MG TAB PO SCH (20:48)
[2021-11-19] MEDS: Floranex 1 GM Packet PO SCH (20:48)
[2021-11-19] MEDS: Lidocaine 5% Patch TD SCH (20:48)
[2021-11-19] MEDS: Cholecalciferol 1,000 UNITS (25 MCG) TAB PO SCH (20:48)
[2021-11-19] MEDS: Ferrous Sulfate 325 MG TAB PO SCH (20:48)
[2021-11-20] MEDS: Meropenem 1 GM in Sodium Chloride 0.9% 100 ML IVPB SCH ×3 (05:32→21:28)
[2021-11-20] MEDS: Transdermal Patch Removal TOP SCH (08:09)
[2021-11-20] MEDS: Nystatin Powder 15 GM BOT TOP SCH ×2 (08:09→20:36)
[2021-11-20] MEDS: Ascorbic Acid 500 mg Chewable Tablet PO SCH (08:09)
[2021-11-20] MEDS: Senokot S 8.6-50 MG TAB PO PRN (14:40)
[2021-11-20] MEDS: Lidocaine 5% Patch TD SCH (20:35)
[2021-11-20] MEDS: Floranex 1 GM Packet PO SCH (20:35)
[2021-11-20] MEDS: Cholecalciferol 1,000 UNITS (25 MCG) TAB PO SCH (20:36)
[2021-11-20] MEDS: Haloperidol 5 MG TAB PO SCH (20:36)
[2021-11-20] MEDS: Ferrous Sulfate 325 MG TAB PO SCH (20:36)
[2021-11-21] MEDS: Meropenem 1 GM in Sodium Chloride 0.9% 100 ML IVPB SCH ×2 (05:34→14:16)
[2021-11-21] MEDS: Senokot S 8.6-50 MG TAB PO PRN (08:10)
[2021-11-21] MEDS: Ascorbic Acid 500 mg Chewable Tablet PO SCH (08:10)
[2021-11-21] MEDS: Nystatin Powder 15 GM BOT TOP SCH ×2 (08:15→20:54)
[2021-11-21] MEDS: Transdermal Patch Removal TOP SCH (08:15)
[2021-11-21 09:34] LABS: #Basophils 0.1 thou/uL (0.0-0.2); #Eosinphils 0.1 thou/uL (0.0-0.7); #Lymphocytes 1.1 thou/uL (1.20-3.40); #Monocytes 0.5 thou/uL (0.11-0.59); #Neutrophils 4.2 thou/uL (1.40-6.50); %Eosinophils 1.3 % (0.0-10.0); %Lymphocytes 18.4 % (21.0-51.0); %Monocytes 9.1 % (0.0-10.0); %Neutrophils 70.4 % (42.0-75.0); Hemoglobin 11.9 g/dL (12.0-16.0); Mean Corpuscular HGB CONC 31.1 g/dL (32.0-36.0); Mean Corpuscular Hemoglobin 30.3 pg (27.0-31.0); Mean Corpuscular Volume 97.6 fL (78.0-98.0); Mean Platelet Volume 6.4 fL (7.4-10.4); Platelet Count 312 thou/uL (130-400); RBC Distribution Width 14.1 % (11.5-14.5); Red Blood Cell (RBC) Count 3.92 mill/uL (4.20-5.40)
[2021-11-21 09:45] LABS: Anion Gap 14 mmol/L (10-20); BUN (Urea Nitrogen) 10 mg/dL (9.8-20.1); Calc. Creatinine Clearance 114 mL/min (70-130); Calcium 8.9 mg/dL (7.8-10.44); Carbon Dioxide 26 mmol/L (23-31); Chloride 103 mmol/L (98-107); Estimated GFR 94; Glucose 112 mg/dL (83-110); Potassium 3.7 mmol/L (3.5-5.1); Sodium 139 mmol/L (136-145)
[2021-11-21] MEDS: Floranex 1 GM Packet PO SCH (20:54)
[2021-11-21] MEDS: Ferrous Sulfate 325 MG TAB PO SCH (20:54)
[2021-11-21] MEDS: Lidocaine 5% Patch TD SCH ×2 (20:54→21:03)
[2021-11-21] MEDS: Cholecalciferol 1,000 UNITS (25 MCG) TAB PO SCH (20:54)
[2021-11-21] MEDS: Haloperidol 5 MG TAB PO SCH (20:55)
[2021-11-22] MEDS: Meropenem 1 GM in Sodium Chloride 0.9% 100 ML IVPB SCH ×3 (06:17→21:17)
[2021-11-22] MEDS: Ascorbic Acid 500 mg Chewable Tablet PO SCH (09:15)
[2021-11-22] MEDS: Transdermal Patch Removal TOP SCH ×2 (09:16→09:25)
[2021-11-22] MEDS: Nystatin Powder 15 GM BOT TOP SCH ×2 (09:16→21:17)
[2021-11-22] MEDS: Ferrous Sulfate 325 MG TAB PO SCH (21:16)
[2021-11-22] MEDS: Haloperidol 5 MG TAB PO SCH (21:16)
[2021-11-22] MEDS: Cholecalciferol 1,000 UNITS (25 MCG) TAB PO SCH (21:16)
[2021-11-22] MEDS: Lidocaine 5% Patch TD SCH (21:17)
[2021-11-22] MEDS: Floranex 1 GM Packet PO SCH (21:17)
[2021-11-22] MEDS: Bisacodyl 10 MG SUPP PR PRN (21:45)
[2021-11-23] MEDS: Meropenem 1 GM in Sodium Chloride 0.9% 100 ML IVPB SCH ×3 (05:43→20:58)
[2021-11-23] MEDS ORDERED: Sodium Chloride 0.9% 1,000 ML IV SCH (06:15)
[2021-11-23] MEDS: Transdermal Patch Removal TOP SCH (08:43)
[2021-11-23] MEDS: Nystatin Powder 15 GM BOT TOP SCH ×2 (08:44→20:50)
[2021-11-23] MEDS: Ascorbic Acid 500 mg Chewable Tablet PO SCH (08:44)
[2021-11-23 09:15] LABS: Anion Gap 14 mmol/L (10-20); BUN (Urea Nitrogen) 15 mg/dL (9.8-20.1); Calc. Creatinine Clearance 114 mL/min (70-130); Calcium 8.9 mg/dL (7.8-10.44); Carbon Dioxide 24 mmol/L (23-31); Chloride 104 mmol/L (98-107); Estimated GFR 94; Glucose 140 mg/dL (83-110); Potassium 3.6 mmol/L (3.5-5.1); Sodium 138 mmol/L (136-145)
[2021-11-23] MEDS: Floranex 1 GM Packet PO SCH (20:50)
[2021-11-23] MEDS: Lidocaine 5% Patch TD SCH (20:50)
[2021-11-23] MEDS: Ferrous Sulfate 325 MG TAB PO SCH (20:50)
[2021-11-23] MEDS: Haloperidol 5 MG TAB PO SCH (20:50)
[2021-11-23] MEDS: Cholecalciferol 1,000 UNITS (25 MCG) TAB PO SCH (20:51)
[2021-11-24] MEDS: Meropenem 1 GM in Sodium Chloride 0.9% 100 ML IVPB SCH ×3 (05:45→20:34)
[2021-11-24 06:06] LABS: #Basophils 0.1 thou/uL (0.0-0.2); #Eosinphils 0.1 thou/uL (0.0-0.7); #Lymphocytes 1.7 thou/uL (1.20-3.40); #Monocytes 0.7 thou/uL (0.11-0.59); %Basophils 1.1 % (0.0-1.0); %Eosinophils 1.7 % (0.0-10.0); %Lymphocytes 22.7 % (21.0-51.0); %Monocytes 8.7 % (0.0-10.0); %Neutrophils 65.8 % (42.0-75.0); Mean Corpuscular HGB CONC 31.3 g/dL (32.0-36.0); Mean Corpuscular Hemoglobin 30.2 pg (27.0-31.0); Mean Corpuscular Volume 96.5 fL (78.0-98.0); Mean Platelet Volume 6.1 fL (7.4-10.4); Platelet Count 285 thou/uL (130-400); RBC Distribution Width 14.2 % (11.5-14.5); Red Blood Cell (RBC) Count 3.63 mill/uL (4.20-5.40); White Blood Cell (WBC) Count 7.6 thou/uL (4.8-10.8)
[2021-11-24 06:16] LABS: Anion Gap 12 mmol/L (10-20); BUN (Urea Nitrogen) 17 mg/dL (9.8-20.1); Calc. Creatinine Clearance 111 mL/min (70-130); Calcium 8.7 mg/dL (7.8-10.44); Carbon Dioxide 28 mmol/L (23-31); Chloride 104 mmol/L (98-107); Estimated GFR 94; Glucose 95 mg/dL (83-110); Potassium 3.9 mmol/L (3.5-5.1); Sodium 140 mmol/L (136-145)
[2021-11-24] MEDS: Ascorbic Acid 500 mg Chewable Tablet PO SCH (08:13)
[2021-11-24] MEDS: Nystatin Powder 15 GM BOT TOP SCH ×2 (08:14→20:34)
[2021-11-24] MEDS: Transdermal Patch Removal TOP SCH (08:18)
[2021-11-24] MEDS: Lidocaine 5% Patch TD SCH (20:34)
[2021-11-24] MEDS: Ferrous Sulfate 325 MG TAB PO SCH (20:35)
[2021-11-24] MEDS: Haloperidol 5 MG TAB PO SCH (20:36)
[2021-11-24] MEDS: Cholecalciferol 1,000 UNITS (25 MCG) TAB PO SCH (20:36)
[2021-11-24] MEDS: Floranex 1 GM Packet PO SCH (20:36)
[2021-11-25] MEDS: Meropenem 1 GM in Sodium Chloride 0.9% 100 ML IVPB SCH ×3 (05:18→21:04)
[2021-11-25] MEDS: Nystatin Powder 15 GM BOT TOP SCH (08:23)
[2021-11-25] MEDS: Ascorbic Acid 500 mg Chewable Tablet PO SCH (08:23)
[2021-11-25] MEDS: Transdermal Patch Removal TOP SCH (08:26)
[2021-11-25] MEDS: Cholecalciferol 1,000 UNITS (25 MCG) TAB PO SCH (21:04)
[2021-11-25] MEDS: Ferrous Sulfate 325 MG TAB PO SCH (21:04)
[2021-11-25] MEDS: Lidocaine 5% Patch TD SCH (21:04)
[2021-11-25] MEDS: Haloperidol 5 MG TAB PO SCH (21:04)
[2021-11-25] MEDS: Floranex 1 GM Packet PO SCH (21:04)
[2021-11-26] MEDS: Nystatin Powder 15 GM BOT TOP SCH ×3 (05:21→20:54)
[2021-11-26] MEDS: Meropenem 1 GM in Sodium Chloride 0.9% 100 ML IVPB SCH ×3 (06:06→20:53)
[2021-11-26] MEDS: Ascorbic Acid 500 mg Chewable Tablet PO SCH (08:33)
[2021-11-26] MEDS: Transdermal Patch Removal TOP SCH (08:35)
[2021-11-26] MEDS: Floranex 1 GM Packet PO SCH (21:09)
[2021-11-26] MEDS: Lidocaine 5% Patch TD SCH (21:09)
[2021-11-26] MEDS: Cholecalciferol 1,000 UNITS (25 MCG) TAB PO SCH (21:09)
[2021-11-26] MEDS: Haloperidol 5 MG TAB PO SCH (21:09)
[2021-11-26] MEDS: Ferrous Sulfate 325 MG TAB PO SCH (21:09)
[2021-11-27] MEDS: Meropenem 1 GM in Sodium Chloride 0.9% 100 ML IVPB SCH ×3 (05:39→20:42)
[2021-11-27 09:26] LABS: #Basophils 0.1 thou/uL (0.0-0.2); #Eosinphils 0.1 thou/uL (0.0-0.7); #Lymphocytes 1.2 thou/uL (1.20-3.40); #Monocytes 0.5 thou/uL (0.11-0.59); #Neutrophils 4.2 thou/uL (1.40-6.50); %Basophils 0.9 % (0.0-1.0); %Eosinophils 1.1 % (0.0-10.0); %Lymphocytes 19.5 % (21.0-51.0); %Monocytes 8.8 % (0.0-10.0); %Neutrophils 69.6 % (42.0-75.0); Hemoglobin 11.3 g/dL (12.0-16.0); Mean Corpuscular HGB CONC 31.6 g/dL (32.0-36.0); Mean Corpuscular Hemoglobin 30.4 pg (27.0-31.0); Mean Corpuscular Volume 96.4 fL (78.0-98.0); Mean Platelet Volume 6.4 fL (7.4-10.4); Platelet Count 264 thou/uL (130-400); RBC Distribution Width 14.3 % (11.5-14.5); Red Blood Cell (RBC) Count 3.71 mill/uL (4.20-5.40)
[2021-11-27 09:31] LABS: Anion Gap 13 mmol/L (10-20); BUN (Urea Nitrogen) 16 mg/dL (9.8-20.1); Calc. Creatinine Clearance 118 mL/min (70-130); Calcium 8.7 mg/dL (7.8-10.44); Carbon Dioxide 27 mmol/L (23-31); Chloride 103 mmol/L (98-107); Estimated GFR 95; Glucose 109 mg/dL (83-110); Potassium 3.9 mmol/L (3.5-5.1); Sodium 139 mmol/L (136-145)
[2021-11-27] MEDS: Ascorbic Acid 500 mg Chewable Tablet PO SCH (09:31)
[2021-11-27] MEDS: Nystatin Powder 15 GM BOT TOP SCH ×2 (09:31→20:42)
[2021-11-27] MEDS: Transdermal Patch Removal TOP SCH (09:33)
[2021-11-27] MEDS: Floranex 1 GM Packet PO SCH (20:42)
[2021-11-27] MEDS: Lidocaine 5% Patch TD SCH (20:42)
[2021-11-27] MEDS: Ferrous Sulfate 325 MG TAB PO SCH (20:42)
[2021-11-27] MEDS: Cholecalciferol 1,000 UNITS (25 MCG) TAB PO SCH (20:42)
[2021-11-27] MEDS: Haloperidol 5 MG TAB PO SCH (20:43)
[2021-11-28] MEDS: Meropenem 1 GM in Sodium Chloride 0.9% 100 ML IVPB SCH (05:22)
[2021-11-28] MEDS: Nystatin Powder 15 GM BOT TOP SCH ×2 (08:13→21:08)
[2021-11-28] MEDS: Transdermal Patch Removal TOP SCH (08:13)
[2021-11-28] MEDS: Ascorbic Acid 500 mg Chewable Tablet PO SCH (08:13)
[2021-11-28] MEDS: Floranex 1 GM Packet PO SCH (21:09)
[2021-11-28] MEDS: Lidocaine 5% Patch TD SCH (21:09)
[2021-11-28] MEDS: Cholecalciferol 1,000 UNITS (25 MCG) TAB PO SCH (21:09)
[2021-11-28] MEDS: Haloperidol 5 MG TAB PO SCH (21:09)
[2021-11-28] MEDS: Ferrous Sulfate 325 MG TAB PO SCH (21:09)
[2021-11-29 07:24] VITALS: BP 124/60; TEMP 97.1
[2021-11-29] MEDS: Nystatin Powder 15 GM BOT TOP SCH (08:11)
[2021-11-29] MEDS: Ascorbic Acid 500 mg Chewable Tablet PO SCH (08:11)
[2021-11-29] MEDS: Transdermal Patch Removal TOP SCH (08:12)
== END 2021-11-29 14:25 | DRG 690 ==
LOC: NAV ACUTE 15:46
PROVIDERS: ADMIT Family Medicine; ATTEND Family Medicine
DX: N39.0 Urinary tract infection, site not specified (principal); Z16.35 Resistance to multiple antimicrobial drugs; F03.91 Unspecified dementia, unspecified severity, with behavioral disturbance; Z20.822 Contact with and (suspected) exposure to COVID-19; K59.09 Other constipation; E78.5 Hyperlipidemia, unspecified; I10 Essential (primary) hypertension; D50.9 Iron deficiency anemia, unspecified; R53.81 Other malaise; E86.0 Dehydration; B96.4 Proteus (mirabilis) (morganii) as the cause of diseases classified elsewhere; Z79.899 Other long term (current) drug therapy; Z87.442 Personal history of urinary calculi; Z87.820 Personal history of traumatic brain injury; Z86.73 Personal history of transient ischemic attack (TIA), and cerebral infarction without residual deficits; Z90.710 Acquired absence of both cervix and uterus
CPT/HCPCS: 36415; 71045; 80048; 81003; 82140; 85025; J2185; J3490; J7050; U0003; U0005